=== PATIENT | female | born 1940 | race Caucasian/White ===

== ENCOUNTER → 2016-07-12 19:16 | Outpatient (CLI) | payer MEDICARE ==
[2016-04-03 13:24] VITALS: BMI 44.1
[~2016-07-12 19:16] MED LIST: AMBIEN10 MG PO; BACTROBAN NASAL1 GM NASAL; BAYER CHEWABLE81 MG PO; COLACE100 MG PO; COREG6.25 MG PO; CYMBALTA60 MG PO; DILAUDID4 MG PO; DITROPAN X10 MG/BOTT PO; ELIQUIS2.5 MG PO; FERROUS GLUCON324 MG PO; FUROSEMIDE20 MG PO; K-TAB10 MEQ PO; METFORMIN HCL500 M1 PO; MOBIC7.5 MG PO; PERCOCET 10/3251 TA1 PO; PROTONIX40 MG PO; ROBAXIN-750750 MG PO; ULTRAM50 MG PO; VITAMIN D31000 UNI2 PO; XANAX0.25 MG PO; ZYLOPRIM100 MG PO
== END | disposition home or self-care (01) ==
LOC: D.LABREF 19:16
DX: M17.11 Unilateral primary osteoarthritis, right knee (principal)

== ENCOUNTER 2016-08-07 05:11 | Inpatient (IN) | payer MEDICARE ==
[2016-08-03 12:19] LABS: APPEARANCE CLEAR (CLEAR); BILIRUBIN NEGATIVE (NEGATIVE); COLOR STRAW (YELLOW); GLUCOSE NEGATIVE (NEGATIVE); KETONE NEGATIVE (NEGATIVE); LEUKOCYTE ESTERASE NEGATIVE (NEGATIVE); NITRITE NEGATIVE (NEGATIVE); PROTEIN NEGATIVE (NEGATIVE); UROBILINOGEN NORMAL (NORMAL)
[2016-08-03 12:24] LABS: BASOPHILS 0.8 % (0.0-2.0); EOSINOPHILS 1.7 % (0-7); HEMATOCRIT 41.5 % (36.0-48.0); HEMOGLOBIN 12.7 g/dL (12-16); IMMATURE GRANULOCYTES 0.2 % (0-5); LYMPHOCYTES 34.5 % (15-50); MCH 25.1 pg (26.0-34.0); MCHC 30.6 g/dL (31.0-37.0); MCV 82.2 fL (80.0-100.0); MEAN PLATELET VOLUME 12.3 fL (7.4-10.4); MONOCYTES 6.3 % (2-11); NEUTROPHILS 56.5 % (40-80); PLATELET COUNT 248 10x3/uL (130-400); RBC 5.05 10x6/uL (4.00-5.40); RDW 17.6 % (11.5-14.5); WBC 6.3 10x3/uL (4.8-10.8)
[2016-08-03 12:28] LABS: ANION GAP 12.9 mmol/L (8-16); CALCIUM 8.7 mg/dL (8.5-10.1); CARBON DIOXIDE 27.4 mmol/L (21.0-32.0); CREATININE - SERUM 0.8 mg/dL (0.6-1.3); POTASSIUM - SERUM 4.3 mmol/L (3.5-5.1)
[2016-08-03 13:51] LABS: APTT 31.2 SECONDS (22.8-39.4); INR 1.02 (0.85-1.17); PROTIME 13.2 SECONDS (11.6-15.0)
[2016-08-07] VITALS (13 sets, daily range): BP systolic 99–129; BP diastolic 49–89; Ht 154.9 cm; Wt 108.6 kg
[~2016-08-07] VITALS: Ht 154.9 cm; Wt 108.6 kg
[~2016-08-07 05:11] MED LIST changes: -DILAUDID4 MG PO
--- NOTE | 2016-08-07 06:56 | NUR ---
0630 PT STATES NO CHANGES IN HEALTH HISTORY ASSESSMENT SINCE INTERVIEWED ON 08/03/16. LAST BM 08/06/16. Malika REYES R.N.
--- NOTE | 2016-08-07 10:05 | NUR ---
PATIENT RECEIVED TO FLOOR FROM PACU VIA BED. PATIENT RESTING QUIETLY WITH EYES CLOSED. WAKES EASY. VITAL SIGNS STABLE. ORIENTED TO ROOM. DRESSING TO RIGHT KNEE CLEAN, DRY AND INTACT. ICE PACK IN PLACE. SIDE RAILS UP X3. BED IN LOW POSITION. CALL LIGHT IN REACH. BED ALARM ON.
--- NOTE | 2016-08-07 11:25 | NUR ---
PATIENT IN BED RESTING QUIETLY. RATES PAIN 9/10. PERCOCET PER PRN ORDER. VITAL SIGN STABLE. FAMILY AT BEDSIDE. SIDE RAILS UP X3. BED IN LOW POSITION. CALL LIGHT IN REACH. BED ALARM ON.
--- NOTE | 2016-08-07 12:30 | NUR ---
ALERT IN BED. NO SIGNS OF DISTRESS NOTED. RATES PAIN 5/10. DENIES NEEDS. SIDE RAILS UP X2. BED IN LOW POSITION. CALL LIGHT IN REACH.
--- NOTE | 2016-08-07 13:07 | NUR ---
* Is the patient Alert and Oriented? Yes 0 * How many steps to enter\exit or inside your home? 5 0 * PCP Dr. Mccollum 0 * Pharmacy [facility] on [address] * Preadmission Environment Home with Family 0 * ADLs Independent 0 * Equipment Bedside Commode Rolling Walker 0 * List name and contact numbers for known caregivers / representatives who currently or will assist patient after discharge: Spouse - Lonny [phone] Daughter - Keisha [phone] 0 * Additional services required to return to the preadmission environment? Yes 0 * Can the patient safely return to the preadmission environment? Yes 0 * Has this patient been hospitalized within the prior 30 days at any hospital? No 08/07/2016 13:17 DCP: Discharge Planning 08/07/2016 13:08 DCP: Discharge Planning Patient Name: MONSE JAVIER Admission Status: Elective Accout number: [id number] Admission Date: 08-07-2016 : 1940 Admission Diagnosis: Attending: UTE Current LOS: 1 Anticipated DC Date: 08-09-2016 Planned Disposition: Outpatient PT\OT Primary Insurance: [employer] CHOICE PPO MCR ADVANT Discharge Planning Comments: CM met with patient to assess DC plans/needs. Patient state she lives at home with her , Lonny. She reports she is independent with all ADL's & IADL's. She has a walker & BSC from previous knee surgery. At dc, she will return home with her . She has chosen to come to [facility] for outpatient physical therapy. Appt. scheduled 08/11 @ 1100. Patient does not want CPM, states she had one after her last surgery but only used it once or twice. Anticipate dc 08/09. CM will follow. Vocational Education Professional: Patricia Preston
--- NOTE | 2016-08-07 14:34 | NUR ---
ALERT IN BED. NO SIGNS OF DISTRESS NOTED. PATIENT REFUSES TO REPOSITION AT THIS TIME. STATES SHE JUST TURNED BACK AND FORTH TO HAVE BED CHANGED. FAMILY AT BEDSIDE STATES THEY WILL MAKE SURE SHE TURNS. WILL CONTINUE TO MONITOR, ENCOURAGE AND ASSIST WITH RESPOSITIONING. C/O PAIN 02/06. 1 TAB NORCO PER PRN ORDER. NO FURTHER NEEDS VOICED. SIDE RAILS UP X3. BED IN LOW POSITION. CALL LIGHT IN REACH.
--- NOTE | 2016-08-07 17:43 | NUR ---
PERCOCET PER PRN ORDER. DENIES NEEDS. SIDE RAILS UP X2. BED IN LOW POSITION. CALL LIGHT IN REACH.
--- NOTE | 2016-08-07 18:20 | NUR ---
CPM PLACED ON RIGHT LEG. ICE PACK IN PLACE. WELL TOLERATED. SIDE RAILS UP X2. BED IN LOW POSITION. CALL LIGHT IN REACH. AT BEDSIDE.
--- NOTE | 2016-08-07 19:30 | NUR ---
RECIEVED SHIFT REPORT. PT IS LYING IN BED. ALERT AND ORIENTED AND ABLE TO VERBALIZE NEEDS. IV IS PATENT AND FLUIDS ARE RUNNING PER ORDER. CPM ON AT THIS TIME. SCD'S ON. DRESSING TO RIGHT KNEE C/D/I. PT STATES PAIN IS 3/10. NO NEEDS ARE VERBALIZED AT THIS TIME. WILL CONTINUE TO MONITOR. DAUGHTER IS AT THE BEDSIDE. NO NEEDS ARE VERBALIZED AT THIS TIME. WILL CONTINUE TO MONITOR. SIDE RAILS ARE UP X 2. BED IS IN LOWEST POSITION. BED ALARM IS ON FOR SAFETY. CALL LIGHT IS WITHIN REACH.
--- NOTE | 2016-08-07 21:49 | NUR ---
SHIFT ASSESSMENT COMPLETED. NIGHT MEDS GIVEN WITH NO PROBLEMS. PT C/O PAIN 09/06. ADMINISTERED PRESCRIBED PRN PERCOCET PER ORDER. DENIES FURTHER NEEDS. WILL MONITOR. DAUGHTER AT BEDSIDE. SIDE RAILS X 2. BED LOW. BED ALARM ON. CALL LIGHT IN REACH.
[2016-08-08] VITALS: BP 88/41
[2016-08-08 04:00] VITALS: BP 111/84
[2016-08-08 05:49] LABS: HEMATOCRIT 30.3 % (36.0-48.0); HEMOGLOBIN 9.3 g/dL (12-16); MCH 25.3 pg (26.0-34.0); MCHC 30.7 g/dL (31.0-37.0); MCV 82.3 fL (80.0-100.0); MEAN PLATELET VOLUME 12.1 fL (7.4-10.4); RBC 3.68 10x6/uL (4.00-5.40); WBC 8.3 10x3/uL (4.8-10.8)
--- NOTE | 2016-08-08 07:10 | NUR ---
PATIENT RECEIVED ALERT IN HIGH GOMES POSITION. RESPIRATIONS EVEN AND UNLABORED. RIGHT LEG IN CPM. DENIES NEEDS. DAUGHTER AT BEDSIDE. SIDE RAILS UP X2. BED IN LOW POSITION. CALL LIGHT IN REACH.
[2016-08-08 07:38] VITALS: BP 107/47
--- NOTE | 2016-08-08 08:07 | NUR ---
PATIENT ALERT IN BED WITH FAMILY AT BEDSIDE. NO SIGNS OF DISTRESS NOTED. SCHEDULED MEDICATION ADMINISTERED. DENIES NEEDS. SIDE RAILS UP X2. BED IN LOW POSITION. CALL LIGHT IN REACH. BED ALARM ON.
--- NOTE | 2016-08-08 10:35 | NUR ---
SITTING UP IN CHAIR AT BEDSIDE ALERT. NO SIGNS OF DISTRESS NOTED. RATES PAIN 05/09. ASSISTED TO BSC. VOIDED 700CC WITHOUT DIFFICULTY. ASSISTED BACK TO CHAIR. POSITIONED SELF FOR COMFORT. WELL TOLERATED. DENIES NEEDS. CALL LIGHT IN REACH. DAUGHTER AT BEDSIDE
[2016-08-08 11:54] VITALS: BP 103/55
--- NOTE | 2016-08-08 13:50 | NUR ---
PERCOCET ADMINISTERED PER PRN ORDER. DENIES FURTHER NEEDS. POSITIONED SELF IN BED FOR COMFORT. SIDE RAILS UP X2. BED IN LOW POSITION. CALL LIGHT IN REACH. BED ALARM ON.
--- NOTE | 2016-08-08 15:30 | NUR ---
ICE PACK TO RIGHT KNEE. NO NEEDS VOICED. SIDE RAILS UP X2. BED IN LOW POSITION. CALL LIGHT IN REACH. BED ALARM ON.
[2016-08-08 15:49] VITALS: BP 130/55
--- NOTE | 2016-08-08 17:19 | NUR ---
ALERT IN BED EATING DINNER. TOLERATING WELL. RATES PAIN 2/10. TORADOL ADMINISTERD PER PRN ORDER. NO FURTHER NEEDS. SIDE RAILS UP X2. BED IN LOW POSITION. CALL LIGHT IN REACH.
--- NOTE | 2016-08-08 18:15 | NUR ---
RIGHT LEG PLACED IN CPM. ICE PACK IN PLACE. DENIES NEEDS. SIDE RAILS UP X2. BED IN LOW POSITION. CALL LIGHT IN REACH. BED ALARM ON.
[2016-08-08 20:00] VITALS: BP 118/50
[2016-08-09 04:00] VITALS: BP 128/62
--- NOTE | 2016-08-09 07:10 | NUR ---
PATIENT RECEIVED IN LOW GOMES POSITION RESTING WITH EYES CLOSED. RESPIRATIONS EVEN AND UNLABORED. RIGHT LEG IN CPM. SIDE RAILS UP X2. BED IN LOW POSITION. CALL LIGHT IN REACH.
[2016-08-09 09:00] VITALS: BP 117/60
[2016-08-09 09:00] LABS: HEMOGLOBIN 9.2 g/dL (12-16); MCH 25.6 pg (26.0-34.0); MCHC 31.7 g/dL (31.0-37.0); MCV 80.8 fL (80.0-100.0); MEAN PLATELET VOLUME 11.7 fL (7.4-10.4); RBC 3.59 10x6/uL (4.00-5.40); RDW 16.9 % (11.5-14.5); WBC 9.9 10x3/uL (4.8-10.8)
--- NOTE | 2016-08-09 09:00 | NUR ---
SITTING UP IN CHAIR ALERT. NO SIGNS OF DISTRESS NOTED. CALL LIGHT IN REACH.
--- NOTE | 2016-08-09 11:30 | NUR ---
PATIENT ASSISTED UP TO BSC THEN BACK TO CHAIR ASSIST X1. VOIDED 300CC WITHOUT DIFFICULTY. DENIES NEEDS. CALL LIGHT IN REACH.
--- NOTE | 2016-08-09 13:27 | NUR ---
ALERT IN BED. NO SIGNS OF DISTRESS NOTED. PERCOCET PER PRN ORDER. DENIES FURTHER NEEDS. SIDE RAILS UP X2. BED IN LOW POSITION. CALL LIGHT IN REACH. BED ALARM ON.
[2016-08-09 13:34] VITALS: BP 112/49
--- NOTE | 2016-08-09 15:00 | NUR ---
ALERT IN BED. NO SIGNS OF DISTRESS NOTED. DENIES NEEDS. RADIOLOGY STAFF AT BEDSIDE TO DO ULTRASOUND. SIDE RAILS UP X2. BED IN LOW POSITION. CALL LIGHT IN REACH .
--- NOTE | 2016-08-09 16:30 | NUR ---
PATIENT ASSISTED UP TO BSC ASSIST X1 AND THEN TO CHAIR AT BEDSIDE. WELL TOLERATED. DENIES NEEDS. CALL LIGHT IN REACH.
[2016-08-09 17:16] VITALS: BP 111/64
--- NOTE | 2016-08-09 18:00 | NUR ---
PATIENT SITTNG UP IN CHAIR AT BEDSIDE. NO SIGNS OF DISTRESS NOTED. TOELRATED DINNER WITHOUT DIFFICULTY. AT BEDSIDE. DENIES NEEDS. CALL LIGHT IN REACH.
[2016-08-09 20:00] VITALS: BP 116/75
[2016-08-10] VITALS: BP 135/66
--- NOTE | 2016-08-10 01:25 | NUR ---
ASSESSED AT THE BEGINNING OF THE SHIFT. PT IS ALERT AND ORIENTED, ABLE TO VERBALZIE NEEDS. HER WAS IN THE BED AT FIRST AND SHE WAS UP IN THE BEDSIDE CHAIR. LATER SHE GOT IN THE BED AND WE PLACED ON THE CPM WHICH RAN FOR ABOUT 2 HRS BEFORE WE TOOK IT OFF. THERE IS AN INCISION TO HER RIGHT KNEE AND SHE HAS A SCARE TO THE LEFT WHERE SHE HAD IT DONE BACK IN THE FALL. SHE HAS BEEN UP TO THE BEDSIDE COMMODE TO VOID AND WITH ASSIST CAN GET BACK UP IN THE BED USING STAFF AND HER TRAPEZE BAR. HER LEFT AT ABOUT 2200. SHE TOOK ALL HER MEDS WITOUT PROBLEMS AND ALSO TOOK PAIN MEDS ORDERED. THE BED IS LOW, RAILS UP X'S 2 WITH THE CALL LIGHT AT HAND.
[2016-08-10 04:00] VITALS: BP 121/61
[2016-08-10] MEDS ORDERED: ELIQUIS2.5 MG PO (07:41)
[2016-08-10] MEDS ORDERED: DILAUDID4 MG PO (07:43)
[2016-08-10 07:50] VITALS: BP 121/49
--- NOTE | 2016-08-10 08:39 | NUR ---
08/10/2016 8:36 DCP: Discharge Planning Patient Name: MONSE JAVIER Encounter No: [id number] : 1940 Primary Insurance: [employer] CHOICE PPO MCR ADVANT Anticipated DC Date: 08-09-2016 Planned Disposition: Outpatient PT\OT External Planned Provider: [facility] Out Patient Physical Therapy DCP follow-up note: DC order rec'd. Discussed home CPM again with patient - continues to refuse. Patient and family in agreement with discharge plan. No changes to plan. DC later this morning. Patricia Preston
--- NOTE | 2016-08-10 10:41 | NUR ---
PATIENT RECIEVED DC INSTRUCTIONS AND PRESCRIPTIONS. VERBALIZED UNDERSTANDING. NO QUESTIONS AT THIS TIME. DRESSING TO RIGHT KNEE CHANGED WITH AQUACEL AG AT THIS TIME. INCISION CLEAN AND DRY. IV REMOVED BY SN WITH CATH TIP INTACT. AWAITING TRANSPORTATION FOR DC. CALL LIGHT WITHIN REACH.
--- NOTE | 2016-08-10 17:40 | OP ---
PATIENT NAME: MONSE JAVIER MEDICAL RECORD: [id number] :[birth year] LOCATION:D.[id number] ADMISSION DATE:08/07/16 SURGEON: CANDIDO WINCHESTER MD DATE OF OPERATION: 08/07/2016 PREOPERATIVE DIAGNOSIS: Degenerative arthritis, right knee. POSTOPERATIVE DIAGNOSIS: Degenerative arthritis, right knee. PROCEDURE: Right total knee arthroplasty. SURGEON: Candido Winchester M.D. ANESTHESIA: General. INTRAOPERATIVE COMPLICATIONS: None. SUMMARY OF PATHOLOGIC FINDINGS: The patient had severe tricompartmental osteoarthritis. IMPLANTS USED: Laclede triathlon total knee arthroplasty size 4 distal femur, 11 polyethylene insert, 4 tibial baseplate, and 33 patellar resurfacing component. OPERATIVE SUMMARY IN DETAIL: After obtaining the appropriate preoperative orthopedic surgery consent as well as anesthetic consultation, evaluation and clearance, the patient was brought to the operating room and placed on the operating table in supine position. After general laryngeal mask was administered, tourniquet was placed about the proximal aspect of the right lower extremity, which was prepped and draped in a routine sterile fashion. The leg was elevated and exsanguinated, tourniquet inflated to 350 mmHg. Routine midline incision was taken down for paramedian arthrotomy. Patella was everted and distal femur was exposed in the usual fashion. Soft tissue excision was done in the usual fashion. Intramedullary guide hole was created for distal intramedullary guided cuts of the femur. The proximal tibia likewise was completely exposed in its entirety and once again, an intramedullary guide hole was created for intramedullary guide of the tibia. The tibia was cut. Measurements were taken. Chamfer cuts were made on the distal femur. Trials were put into place corresponding to the above-mentioned sizes. Taken through range of motion and found to be stable in all planes. Distal femoral and proximal tibial final preparations were followed by excision of the severely arthritic patellar component. After final patellar component preparations were made, the knee was irrigated in pulsatile lavage fashion to remove all bone fragmentation. Bone ends were dried. Final components were cemented into place. All excess cement was removed. After the cement was allowed to harden, the knee was taken through a range of motion, slight lateral subluxation was noted and lateral release was performed. Median arthrotomy was then closed with #2 Ethibond followed by #1 Vicryl, 2-0 Vicryl, and skin jenny. Sterile dressings were applied. The tourniquet was deflated. The patient was awakened and taken to the recovery room in stable condition. All final needle and sponge counts were correct. TRANSINT:[id number] Voice Confirmation ID: [id number] DOCUMENT ID: [id number] OPERATIVE REPORT [id number] MONSE JAVIER MD, CANDIDO JUDGE at 1740 CC: [id number] DICTATION DATE: 08/07/16931 AUTOMOTIVE PARTS INTERPRETER: 08/07/16 1313 DIS IN 08/10/16 [facility] [address] [place] [address]
== END 2016-08-10 10:55 | disposition home or self-care (01) | DRG 554 ==
LOC: D.MS 05:11 → D.SDCHOLD 05:11 → D.MS 09:54 → D.SDCHOLD 10:30 → D.MS 08-10 10:55
PROVIDERS: ADMIT Orthopaedic Surgery
DX: M17.11 Unilateral primary osteoarthritis, right knee (principal); D62 Acute posthemorrhagic anemia; E11.9 Type 2 diabetes mellitus without complications; Z79.84 Long term (current) use of oral hypoglycemic drugs; G47.00 Insomnia, unspecified; I25.10 Atherosclerotic heart disease of native coronary artery without angina pectoris

== ENCOUNTER 2016-09-04 07:50 | Inpatient (IN) | payer MEDICARE ==
[2016-08-31 14:32] LABS: BASOPHILS 0.6 % (0-2); EOSINOPHILS 0.7 % (0-7); HEMATOCRIT 34.1 % (36.0-48.0); HEMOGLOBIN 10.6 g/dL (12-16); IMMATURE GRANULOCYTES 0.2 % (0-5); LYMPHOCYTES 24.2 % (15-50); MCH 25.3 pg (26.0-34.0); MCHC 31.1 g/dL (31.0-37.0); MCV 81.4 fL (80.0-100.0); MEAN PLATELET VOLUME 10.8 fL (7.4-10.4); MONOCYTES 8.8 % (2-11); NEUTROPHILS 65.5 % (40-80); RBC 4.19 10x6/uL (4.00-5.40); RDW 16.5 % (11.5-14.5); WBC 8.9 10x3/uL (4.8-10.8)
[2016-08-31 14:34] LABS: PLATELET COUNT 391 10x3/uL (130-400)
[2016-08-31 14:40] LABS: ANION GAP 10.6 mmol/L (8-16); CALCIUM 8.7 mg/dL (8.5-10.1); CARBON DIOXIDE 30.9 mmol/L (21.0-32.0); CREATININE - SERUM 0.8 mg/dL (0.6-1.3); POTASSIUM - SERUM 3.5 mmol/L (3.5-5.1)
[2016-08-31 14:47] LABS: APPEARANCE CLOUDY (CLEAR); BILIRUBIN NEGATIVE (NEGATIVE); COLOR YELLOW (YELLOW); GLUCOSE NEGATIVE (NEGATIVE); KETONE NEGATIVE (NEGATIVE); LEUKOCYTE ESTERASE 1+ (NEGATIVE); NITRITE POSITIVE (NEGATIVE); PROTEIN 1+ mg/dL (NEGATIVE); SPECIFIC GRAVITY 1.015 (1.005-1.020); UROBILINOGEN NORMAL (NORMAL)
[2016-08-31 14:48] LABS: BACTERIA MANY /hpf (NONE SEEN); EPITHELIAL CELLS 0-5 /hpf (0-5); RED CELLS - URINE 0-5 /hpf (0-5)
[2016-08-31 15:24] LABS: APTT 30.7 SECONDS (22.8-39.4); INR 1.13 (0.85-1.17); PROTIME 14.4 SECONDS (11.6-15.0)
[~2016-09-04] VITALS: Ht 154.9 cm; Wt 106.4 kg
[~2016-09-04 07:50] MED LIST changes: +DILAUDID4 MG PO; -FUROSEMIDE20 MG PO; +HYDROCODONE-APA1 TAB PO; +LASIX20 MG PO
[2016-09-04 08:55] LABS: APPEARANCE SLT CLOUDY (CLEAR); COLOR YELLOW (YELLOW); SPECIFIC GRAVITY 1.015 (1.005-1.020)
[2016-09-04 08:56] LABS: BACTERIA MANY /hpf (NONE SEEN); BILIRUBIN NEGATIVE (NEGATIVE); GLUCOSE NEGATIVE (NEGATIVE); KETONE NEGATIVE (NEGATIVE); LEUKOCYTE ESTERASE 2+ (NEGATIVE); MUCUS >1+ /lpf (NONE SEEN); NITRITE NEGATIVE (NEGATIVE); PROTEIN NEGATIVE (NEGATIVE); RED CELLS - URINE 0-5 /hpf (0-5)
[2016-09-04 09:01] VITALS: BP 115/57; BMI 44.5
[2016-09-04 14:20] VITALS: BP 91/59
--- NOTE | 2016-09-04 14:20 | NUR ---
RECEIVED PT TO ROOM 2209, VIA BED, PT DROWSY FROM PAIN MEDS GIVEN IN RECOVERY. PT ORIENTED TO ROOM AND CALL LIGHT. SCD PUT ON LEFT LEG. WILL DO ASSESSMENT AND START PLAN OF CARE. DAUGTHER AT BEDSIDE
--- NOTE | 2016-09-04 14:56 | NUR ---
DEMEROL PIPED BUTTONHOLE MACHINE OPERATOR STARTED AT THIS TIME. PT IN BED, DENIES ANY NEEDS AT THIS TIME. DAUGTHER AT BEDSIDE, NAD NOTED, WILL CONTINUE TO MONITOR.
[2016-09-04 16:17] VITALS: Ht 154.9 cm; Wt 106.4 kg
--- NOTE | 2016-09-04 19:00 | NUR ---
PATIENT SUPINE IN BED WATCHING TV. HOB 30 DEGREES. AAOX4. RR EVEN AND UNLABORED. O2 @ 2L VIA NC. 0 S/S OF DISTRESS. DENIES PAIN AT THIS TIME. IV TO RIGHT WRIST PATENT WITH NO REDNESS OR SWELLING. DRESSING TO RIGHT KNEE CDI WITH IMMOBILIZER ON. WOUNDVAC TO RIGHT KNEE. MEPILEX TO BILATERAL HEELS. SCD TO LLE. B/A ON. AT BEDSIDE. SRX2. BED LOW. CALL LIGHT WITHIN REACH.
[2016-09-04 20:00] VITALS: BP 97/71
--- NOTE | 2016-09-04 22:15 | NUR ---
ASSESSMENT COMPLETE. NIGHTTIME MEDS GIVEN. NO OTHER NEEDS AT THIS TIME.
[2016-09-05] VITALS: BP 109/52
--- NOTE | 2016-09-05 02:00 | NUR ---
PATIENT HAD INCONTINENT EPISODE OF BLADDER. BATH GIVEN. LINENS AND GOWN CHANGED.
[2016-09-05 04:00] VITALS: BP 107/44
--- NOTE | 2016-09-05 06:00 | NUR ---
PATIENT AWAKE AND ALERT. MORNING MEDS GIVEN. DENIES NEEDS OR PAIN.
[2016-09-05 06:40] LABS: HEMATOCRIT 29.2 % (36.0-48.0); MCH 24.7 pg (26.0-34.0); MCHC 30.8 g/dL (31.0-37.0); MCV 80.2 fL (80.0-100.0); MEAN PLATELET VOLUME 11.1 fL (7.4-10.4); RBC 3.64 10x6/uL (4.00-5.40); RDW 16.3 % (11.5-14.5); WBC 8.1 10x3/uL (4.8-10.8)
[2016-09-05 08:04] VITALS: BP 110/34
--- NOTE | 2016-09-05 08:36 | NUR ---
RESTING, SISTER AT BEDSIDE, DENIES NEEDS, BED LOWEST POSITION, CALL LIGHT IN REACH, WILL CONTINUE TO MONITOR
--- NOTE | 2016-09-05 09:05 | NUR ---
PATIENT SITTING UP ON SIDE OF BED ALERT. NO SIGNS OF DISTRESS NOTED. PT AT BEDSIDE. BED IN LOW POSITION. CALL LIGHT IN REACH.
[2016-09-05 11:33] VITALS: BP 138/57
--- NOTE | 2016-09-05 14:32 | NUR ---
* Is the patient Alert and Oriented? Yes 0 * How many steps to enter\exit or inside your home? 5 0 * PCP Dr. Mccollum 0 * Pharmacy [facility] [address] * Preadmission Environment Home with Family 0 * ADLs Partial Dependent 0 * Partial ADLs (Assistance needed) Ambulation Bathing Dressing Toileting 0 * Equipment Bedside Commode Rolling Walker 0 * List name and contact numbers for known caregivers / representatives who currently or will assist patient after discharge: Spouse - Bill [phone] Daughter - Keisha [phone] 0 * Additional services required to return to the preadmission environment? Yes 0 * Can the patient safely return to the preadmission environment? Yes 0 * Has this patient been hospitalized within the prior 30 days at any hospital? Yes 09/05/2016 14:26 DCP: Discharge Planning Patient Name: MONSE JAVIER Admission Status: Elective Accout number: [id number] Admission Date: 09-04-2016 : 1940 Admission Diagnosis: Attending: UTE Current LOS: 1 Anticipated DC Date: 09-07-2016 Planned Disposition: Home with Home Health Primary Insurance: [employer] CHOICE PPO [facility] Discharge Planning Comments: CM met with patient to assess dc plans/needs. Patient states she was going to outpatient physical therapy here at [facility] following her initial knee surgery last month. She states she quit going after she went to see her surgeon & revision was scheduled. Spoke with Umu @ [facility] OP PT - she states patient wasn't consistent with keep her appointments, had issues with family bringing her. She has a walker & BSC at home. Discussed home health services with patient - she is agreeable. She reports she has had home health services in the past with [facility] & wants to use them again. JOSEPH signed. Anticipate DC 09/07. CM will follow.
[2016-09-05 16:20] VITALS: BP 113/42
--- NOTE | 2016-09-05 19:36 | NUR ---
ASSESSMENT COMPLETED, NO ACUTE DISTRESS NOTED, IMMOBILIZER AND WOUND VAC IN PLACE TO RLE, VAC RUNNING AT 125/MMHG, IV TO R WRIST PATENT, FLUIDS AND CFO CONTROLLER INFUSING WITH EASE,SCD IN PLACE TO LLE, FAMILY IN ROOM, SR'S UP, CL IN REACH, WILL MONITOR
[2016-09-05 20:00] VITALS: BP 110/46
--- NOTE | 2016-09-05 20:45 | NUR ---
SCHEDULED MEDS GIVEN PER MAR ALONG WITH PRN TORODAL, LOGISTICS PROJECT MANAGER PUMP FILLED PER ORDERS, PT FRANCO WELL, FAMILY IN ROOM, SR'S UP, CL IN REACH
--- NOTE | 2016-09-05 22:16 | NUR ---
RESTING WITH EYES CLOSED, RESP WITH EASE, NO DISTRESS NOTED, VISITOR AT BEDSIDE, SR'S UP, CL IN REACH
--- NOTE | 2016-09-06 00:31 | NUR ---
CONTINUES TO REST WITH EYES CLOSED, NO DISTRESS NOTED, FALL PRECAUTIONS IN PLACE, CL IN REACH
[2016-09-06 05:35] LABS: HEMATOCRIT 28.2 % (36.0-48.0); HEMOGLOBIN 8.8 g/dL (12-16); MCH 24.8 pg (26.0-34.0); MCHC 31.2 g/dL (31.0-37.0); MCV 79.4 fL (80.0-100.0); MEAN PLATELET VOLUME 10.9 fL (7.4-10.4); RBC 3.55 10x6/uL (4.00-5.40); RDW 16.3 % (11.5-14.5); WBC 7.6 10x3/uL (4.8-10.8)
--- NOTE | 2016-09-06 07:30 | NUR ---
RECIEVED PT DURING WALKING ROUNDS. PT RESTING IN BED WITH COMPLAINTS OF PAIN OF A 5 ON A SCALE OF 1-10. SOLAR PHOTOVOLTAIC DESIGNER IN USE. ASSESSMENT DONE PER FLOWSHEET. BED IN LOW POSITION AND CALL LIGHT WITHIN REACH. WILL CONTINUE TO MONITOR.
[2016-09-06 08:16] VITALS: BP 125/58
--- NOTE | 2016-09-06 10:36 | NUR ---
09/06/2016 10:27 DCP: Discharge Planning Patient Name: MONSE JAVIER Encounter No: [id number] : 1940 Primary Insurance: [employer] CHOICE PPO MCR ADVANT Anticipated DC Date: 09-07-2016 Planned Disposition: SNF DCP follow-up note: Order rec'd for rehab placement. Daughter states she is not able to care for patient at home until she is stronger. Discussed SNF options - first choice is [facility], second [facility], 3rd [facility] & 4th [facility]. Referral faxed and called to Gina @ [facility]. Waiting determination & insurance authorization. Case management will follow and assist as needed. Patricia Preston
[2016-09-06 12:22] VITALS: BP 109/60
--- NOTE | 2016-09-06 13:29 | OP ---
PATIENT NAME: MONSE JAVIER MEDICAL RECORD: [id number] :[birth year] LOCATION:D.[facility] ADMISSION DATE:09/04/16 SURGEON: CANDIDO WINCHESTER MD DATE OF OPERATION: 09/04/2016 Orthopedic Surgery Operative Note PREOPERATIVE DIAGNOSIS: Tear of the paramedian arthrotomy with lateral patellar subluxation. POSTOPERATIVE DIAGNOSIS: Tear of the paramedian arthrotomy with lateral patellar subluxation, plus loosening of the tibia. PROCEDURES: Right total knee revision tibial component with a quadriceps repair and realignment that is imbrication and quadriceps advancement. OPERATIVE SUMMARY IN DETAIL: After obtaining the appropriate preoperative orthopedic surgery consent as well as anesthetic consultation, evaluation and clearance, the patient was brought to the operating room and placed on table in supine position. After general laryngeal mask was administered, tourniquet was placed about the proximal aspect of the right lower extremity. The right lower extremity was then prepped and draped in routine sterile fashion. Leg was elevated, exsanguinated and tourniquet 350 mmHg. The previously utilized incision was taken down, the paramedian arthrotomy was grossly split. The patella and component itself was in place and the tibial component was loose. Attention was first turned to removal of the tibial component. Polyethylene was taken out. The tibial component was removed. It did appear that there was a fracture underneath the base of it with a substantial amount of bone loss. At this point, the knee was copiously irrigated. Serial and sequential reaming was done for a totally cemented universal baseplate using cone stabilization and tibial baseplate augmentation. After the appropriate cleanup cut was made, the trial that is a #3 baseplate with a 100-mm stem with two 10-mm wedges medially and lateral was put into place along with a size 11 patellar component. This was stable in all planes. This was all removed. The reaming was done for the bone loss for the cone system of the [place] difficult knee. Having completed this, a trial was replaced and again punched in the appropriate position. Lastly, the cavity was copiously irrigated. The femoral component was checked and found to be without deficit as was the patella. The tibial component was assembled on the back table and a cement restrictor was placed down the tibia. The tibia was then cemented into place and held in the appropriate rotation until the cement was allowed to harden. All excess cement was removed. At this point, the paramedian arthrotomy was closed; however, the vastus medialis obliquus was advanced and a long lateral release was done to help more centralized the patella. The VM0 advancement was done with FiberWire. Lastly, the skin was closed with #1 Vicryl followed by skin jenny. Sterile dressings were applied. Tourniquet was deflated. The patient was awakened and taken to recovery room in stable condition. All final needle and sponge counts were correct. TRANSINT:[id number] Voice Confirmation ID: [id number] DOCUMENT ID: [id number] OPERATIVE REPORT [id number] MONSE JAVIER MD, CANDIDO JUDGE at 1329 CC: [id number] DICTATION DATE: 09/04/16 1950 HOUSING AND RESIDENCE LIFE DIRECTOR: 09/05/16 0542 [facility] [address] [place] [address]
--- NOTE | 2016-09-06 14:57 | NUR ---
Rehab Note- Acute Rehab Prescreen order received. The patient has [employer] And will require a PreAuth for IRF stay. Clinicals have been faxed to Mendy Hodges CM for [employer] and awaiting possible approval for PreAuth. Thank you for this referral! Ailin Lopez RN Clinical Liaison, [facility] Rehab/[place]
[2016-09-06 16:31] VITALS: BP 132/64
--- NOTE | 2016-09-06 16:36 | NUR ---
Rehab Note- Received notification from BURAK Brooke for [facility]. Acute IRF stay was denied by [facility] medical van driver. Peer to Peer review appeal can occur within 5 calendar days of denial and Mendy can be reached at [phone] [phone] to set up peer to peer. Spoke with BURAK Best and informed her that the patient had been denied an IRf stay but would approve a SNF stay if that is what the patient and family desire upon discharge from the acute hospital. Thank you for this referral! Ailin Lopez RN Clinical Liaison, [facility] Rehab/[place]
--- NOTE | 2016-09-06 18:03 | NUR ---
OT NOTE: PT COMPLETED SELF FEEDING WITH SET UP. PT COMPLETED POSITIONING WITH MOD/MAX A. PT COMPLETED BUE GROSS/FM SKILLS FOR INCREASED I WITH ADLS. THANK YOU, ASHLEY ASHFORD/Jerald
--- NOTE | 2016-09-06 19:00 | NUR ---
PATIENT IN BED WATCHING TV. HOB 45 DEGREES. AAOX4. RR EVEN AND UNLABORD. 0 S/S OF DISTRESS. STATES PAIN IS A 5/10. IV TO RIGHT WRIST PATENT WITH NO REDNESS OR SWELLING. DRESSING TO RIGHT KNEE CDI WITH HINGED BRACE ON. SCD TO LLE. DAUGHTER AT BEDSIDE. B/A ON. SRX2. BED LOW. CALL LIGHT WITHIN REACH.
[2016-09-06 20:00] VITALS: BP 123/58
--- NOTE | 2016-09-06 22:00 | NUR ---
NIGHTTIME MEDS GIVEN. TORADOL GIVEN FOR PAIN PER REQUEST.
[2016-09-07] VITALS: BP 111/46
[2016-09-07 04:00] VITALS: BP 124/52
--- NOTE | 2016-09-07 07:14 | NUR ---
PATIENT IS AWAKE, ALERT AND ORIENTED X'S 4. RESPIRATIONS ARE EVEN AND UNLABORED ON ROOM AIR. BED ALARM OFF, TURNED IT ON. BED IN LOWEST POSITION, CALL LIGHT IN REACH. FAMILY MEMBER IN CHAIR BESIDE BED.
--- NOTE | 2016-09-07 07:16 | NUR ---
BED ALARM GOING OFF, WENT IN ROOM. FAMILY MEMBER TURNED OFF THE BED ALARM. SHE STATED "I WAS TRYING TO GET HER PULLED UP IN THE BED AND THE BED ALARM WENT OFF. THAT THING IS ALWAYS GOING OFF, EVEN WHEN I AM JUST TRYING TO PUT HER ON THE BEDPAN. AND WHEN IT STARTS GOING OFF IT WILL NOT STOP. THAT'S WHY I JUST KEEP IT TURNED OFF." I STATED "WE HAVE TO KEEP THE BED ALARM ON." ASSISTED PATIENT GETTING PULLED UP IN THE BED. TURNED THE BED ALARM BACK ON.
--- NOTE | 2016-09-07 07:30 | NUR ---
PT ASSESSMENT COMPLETE AWAKE AND ALERT ORINETED X 3 LUNGS WITH NO AEDBAYO EXOPIRATORY WHEEZE TO RIGHT UPPER LOBE CALL LIGHT IN REACH SIDE RAILS UP X 2
[2016-09-07] MEDS ORDERED: HYDROCODONE-APA1 TAB PO (08:35)
[2016-09-07 08:44] VITALS: BP 120/48
--- NOTE | 2016-09-07 10:58 | NUR ---
09/07/2016 10:50 DCP: Discharge Planning Rec'd call from Pricila with [facility] - patient has been accepted to a fdc bed and they have rec'd insurance authorization. Family has completed paperwork. Transport van will pick her up around 1430. Nursing to call report to [phone]. DC orders & Med Rec faxed.
[2016-09-07 12:24] VITALS: BP 104/72
--- NOTE | 2016-09-07 16:36 | NUR ---
PT DISCHARGED TO [facility] REPORT CALLED PIV D/C AND DRESSING CHANGED PRIOR TO DISCHARGE.
== END 2016-09-07 16:37 | DRG 467 ==
LOC: D.MS 07:50 → D.SDCHOLD 07:50 → D.MS 08:58 → D.SDCHOLD 10:00 → D.MS 09-07 16:37
PROVIDERS: ADMIT Orthopaedic Surgery
PROC: 0SRV0J9 Replacement of Right Knee Joint, Tibial Surface with Synthetic Substitute, Cemented, Open Approach (ICD-10-PCS; 2016-09-04)
PROC: 0SPV0JZ Removal of Synthetic Substitute from Right Knee Joint, Tibial Surface, Open Approach (ICD-10-PCS; principal; 2016-09-04 10:00)
DX: T84.032A Mechanical loosening of internal right knee prosthetic joint, initial encounter (principal); D62 Acute posthemorrhagic anemia; T84.022A Instability of internal right knee prosthesis, initial encounter; E11.9 Type 2 diabetes mellitus without complications; I10 Essential (primary) hypertension; Z79.84 Long term (current) use of oral hypoglycemic drugs; Z95.5 Presence of coronary angioplasty implant and graft; I25.10 Atherosclerotic heart disease of native coronary artery without angina pectoris

== ENCOUNTER 2016-09-12 15:42 | Inpatient (IN) | payer MEDICARE ==
[~2016-09-12] VITALS: Ht 154.9 cm; Wt 106.1 kg
--- NOTE | 2016-09-12 17:00 | NUR ---
RECIEVED TO ROOM FROM ER ADMISSIONS DIRECT ADMISSION FROM DR WINCHESTER PT NOTED TO HAVE BRACE TO RIGHT KNEE AND DRESSING IN PLACE WITH ADMITTING DX DEHIST WOUND TO RIGHT KNEE S/P TOTAL RIGHT KNEE LAST WEEK. AFEBRILE. AWAKE AND ALERT ORIENTED X 3
[2016-09-12 17:36] VITALS: BMI 44.3
[2016-09-12 18:27] LABS: BASOPHILS 0.3 % (0-2); HEMATOCRIT 30.5 % (36.0-48.0); HEMOGLOBIN 9.3 g/dL (12-16); IMMATURE GRANULOCYTES 0.4 % (0-5); LYMPHOCYTES 27.8 % (15-50); MCH 24.5 pg (26.0-34.0); MCHC 30.5 g/dL (31.0-37.0); MCV 80.5 fL (80.0-100.0); MEAN PLATELET VOLUME 10.4 fL (7.4-10.4); MONOCYTES 9.3 % (2-11); NEUTROPHILS 61.2 % (40-80); RBC 3.79 10x6/uL (4.00-5.40); RDW 16.9 % (11.5-14.5); WBC 9.2 10x3/uL (4.8-10.8)
[2016-09-12 18:28] LABS: PLATELET COUNT 383 10x3/uL (130-400)
--- NOTE | 2016-09-12 18:41 | NUR ---
PIV SITED TO RIGHT INNER FORARM 22 GA X 1 STICK. TOLERATED WELL.
[2016-09-12 18:59] LABS: ANION GAP 10.9 mmol/L (8-16); CALCIUM 8.1 mg/dL (8.5-10.1); CREATININE - SERUM 0.9 mg/dL (0.6-1.3); POTASSIUM - SERUM 3.9 mmol/L (3.5-5.1)
[2016-09-12 19:00] VITALS: BP 98/51
[2016-09-13 04:00] VITALS: BP 130/55
[2016-09-13 06:21] LABS: BASOPHILS 0.8 % (0-2); HEMATOCRIT 27.8 % (36.0-48.0); HEMOGLOBIN 8.5 g/dL (12-16); IMMATURE GRANULOCYTES 0.3 % (0-5); LYMPHOCYTES 39.3 % (15-50); MCH 24.3 pg (26.0-34.0); MCHC 30.6 g/dL (31.0-37.0); MCV 79.4 fL (80.0-100.0); MEAN PLATELET VOLUME 10.7 fL (7.4-10.4); MONOCYTES 9.9 % (2-11); NEUTROPHILS 47.7 % (40-80); PLATELET COUNT 414 10x3/uL (130-400); RDW 16.7 % (11.5-14.5)
[2016-09-13 06:23] LABS: WBC 6.1 10x3/uL (4.8-10.8)
[2016-09-13 06:54] LABS: CALC OSMOLALITY 281 mosm/kg (275-300); CHLORIDE - SERUM 104 mmol/L (98-107); CREATININE - SERUM 0.7 mg/dL (0.6-1.3); GLUCOSE 98 mg/dL (74-106); POTASSIUM - SERUM 3.6 mmol/L (3.5-5.1); SODIUM 142 mmol/L (136-145); eGFR NON AFRICAN AMERICAN 86 mL/min (90-120)
[2016-09-13 07:18] LABS: UREA NITROGEN 10 mg/dL (7-18)
[2016-09-13 08:14] VITALS: BP 138/48; BP 138/62
--- NOTE | 2016-09-13 08:45 | NUR ---
Lying in bed alert and oriented times 4, IV patent RAC, right knee brace in place with dressing clean, dry and intact. Reports pain at level 1. No distress noted. Side rails up times 3. Reinforced fall precautions, transfers with assist to BSC. Instructed on will have procedure on right knee today, reported to this nurse for around noon, consents on chart signed. Verbalized understanding of NPO. Call light within reach. Spouse at bedside.
--- NOTE | 2016-09-13 11:38 | NUR ---
09/13/2016 11:26 DCP: Discharge Planning Patient Name: MONSE JAVIER Admission Status: Urgent Accout number: [id number] Admission Date: 09-12-2016 : 1940 Admission Diagnosis:DISRUPTION OF EXTERNAL OPERATION (SURGICAL) WOUND, NEC, Attending: UTE Current LOS: 1 Anticipated DC Date: 09-15-2016 Planned Disposition: Home with Home Health Primary Insurance: [employer] CHOICE [facility] Discharge Planning Comments: CM MET WITH PT AND DAUGHTER (JORDANA ANDRADE) IN ROOM WITH HER. PT STATES THAT SHE THAT SHE CAME FROM [facility] AND DOES NOT WANT TO RETURN THERE. PT IS REQUESTING TO GO HOME WITH HOME HEALTH. SHE STATES SHE HAS AROUND THE CLOCK CARE WITH HER (IAN JAVIER) AND HER DAUGHTER (VARUN LAKE). PT HAS 3 STAIRS WITH GRAB RAILS. PT DOES HER OWN MEDICATIONS AND HAS A ELEVATED TOILET SEAT. BEDSIDE COMMODE, CANE, WALKER. SHE ALSO SATES THAT SHE HAS A WALK IN SHOWER WITH A SHOWER CHAIR. PCP [facility] CM WILL CONTINUE TO FOLLOW AND ASSIST NEEDED WITH DISCHARGE PLANNING/ NEEDS PCP: [facility]: [facility] [address] [address] [phone] DANY GUTIÉRREZ RN * Is the patient Alert and Oriented? Yes 0 * How many steps to enter\exit or inside your home? 3 0 * PCP [facility] 0 * Pharmacy [facility] 0 * Preadmission Environment [facility] Facility 0 * Facility Name [facility] 0 * ADLs Partial Dependent 0 * Partial ADLs (Assistance needed) Bathing Dressing Toileting Transfers 0 * Equipment Cane Elevated [place] Seat Shower Chair Walker 0 * Other Equipment WALK IN SHOWER 0 * List name and contact numbers for known caregivers / representatives who currently or will assist patient after discharge: IAN JAVIER () [phone] VARUN LAKE (DAUGHTER) [phone] JORDANA ANDRADE (DAUGHTER) [phone] 0 * Community resources currently utilized None 0 * Additional services required to return to the preadmission environment? Yes 0 * Can the patient safely return to the preadmission environment? Yes 0 * Has this patient been hospitalized within the prior 30 days at any hospital? Yes
[2016-09-13 11:50] VITALS: BP 149/68
--- NOTE | 2016-09-13 11:54 | NUR ---
Patient transported down for surgery. Relayed information regarding patient need for new order to infuse one unit of PRBC to [facility] in surgery.
--- NOTE | 2016-09-13 13:45 | NUR ---
Patient back from surgery right knee irrigation and wound closure. Alert and oriented times 4, verbalizes no pain. Justin wrap dressing and immobilizer in place. Room air pulse ox 94%, vital signs stable. Report from Shagufta Nova.
[2016-09-13 13:49] VITALS: BP 149/66
[2016-09-13 14:12] VITALS: Ht 154.9 cm; Wt 106.1 kg
--- NOTE | 2016-09-13 15:30 | NUR ---
Inquired to charge nurse Lizz and nurse Rudolph regarding blood administration needs on this patient. Will assist when available.
--- NOTE | 2016-09-13 18:00 | NUR ---
IV needs resiting for blood, attempts by nurse Ailyn unsuccessful right wrist, unsuccessful attempt per this nurse with 20g angiocath to left wrist. Blood returned to lab within time frame until IV access.
--- NOTE | 2016-09-13 19:58 | NUR ---
PATIENT RESTING IN BED WITH DAUGHTER AT BEDSIDE AND DENIES NEEDS AT THIS TIME. BED IN LOWEST POSITION AND CALL LIGHT WITHIN REACH. ENCOURAGED THE PATIENT TO CALL IF SHE HAS NEEDS.
[2016-09-13 20:00] VITALS: BP 121/54
[2016-09-14] VITALS (12 sets, daily range): BP systolic 95–145; BP diastolic 41–71
--- NOTE | 2016-09-14 00:26 | NUR ---
BEGAN ADMINISTERING 1 UNIT OF PRBC PER ORDERS.
[2016-09-14 05:07] LABS: BASOPHILS 0.6 % (0-2); EOSINOPHILS 1.9 % (0-7); HEMATOCRIT 30.9 % (36.0-48.0); HEMOGLOBIN 9.6 g/dL (12-16); IMMATURE GRANULOCYTES 0.1 % (0-5); LYMPHOCYTES 35.8 % (15-50); MCH 24.7 pg (26.0-34.0); MCHC 31.1 g/dL (31.0-37.0); MCV 79.6 fL (80.0-100.0); MEAN PLATELET VOLUME 10.6 fL (7.4-10.4); NEUTROPHILS 50.6 % (40-80); PLATELET COUNT 429 10x3/uL (130-400); RBC 3.88 10x6/uL (4.00-5.40); RDW 16.9 % (11.5-14.5)
[2016-09-14 05:21] LABS: CALC OSMOLALITY 278 mosm/kg (275-300); CALCIUM 7.9 mg/dL (8.5-10.1); CARBON DIOXIDE 27.8 mmol/L (21.0-32.0); CHLORIDE - SERUM 105 mmol/L (98-107); CREATININE - SERUM 0.7 mg/dL (0.6-1.3); GLUCOSE 96 mg/dL (74-106); POTASSIUM - SERUM 3.8 mmol/L (3.5-5.1); SODIUM 140 mmol/L (136-145); UREA NITROGEN 12 mg/dL (7-18); VANCOMYCIN - TROUGH 11.9 ug/mL (10.0-20.0); eGFR NON AFRICAN AMERICAN 86 mL/min (90-120)
--- NOTE | 2016-09-14 07:30 | NUR ---
PT ASSESSMENT COMPLETE AWAKE AND ALERT ORINETD X 3 LUNGS CLEAR BILATERALLY NO ACUTE DISTRESS NOTED VOICES ALL NEEDS TO STAFF HAS SURGICAL DRESSING IN PLACE WITH IMMOBILIZER NOTED CALL LIGHT IN REACH
--- NOTE | 2016-09-14 10:25 | NUR ---
09/14/2016 10:23 DCP: Discharge Planning CM REASSESSMENT NOTE: PT SIGNED THE [facility] FORM FOR [facility] [id number]: Kim Kendrick
--- NOTE | 2016-09-14 11:22 | NUR ---
CM NOTE: VARUN (DAUGHTER) STATES SHE IS CALLING [facility] AND IS GOING TO RENT A HOSPITAL BED FOR HER MOM & WANTED US TO KNOW THAT SHE IS SETTING THAT UP FOR HER. CM WILL CONTINUE TO FOLLOW AND ASSIST IF NEEDED DANY GUTIÉRREZ RN
--- NOTE | 2016-09-14 11:46 | NUR ---
AWAKE AND ALERT. SITTING UP IN CHIAR AT BEDSDIE. DRESSING TO RIGHT KNEE IS DRY AND INTACT. IMMOBILYZER IN PLACE. C/O SOME PAIN AT THIS TIME. WILL CHECK ON PRN.
--- NOTE | 2016-09-14 11:58 | NUR ---
09/14/2016 11:57 DCP: Discharge Planning CM SENT REFERRAL TO [facility] [id number]: Kim Kendrick
[2016-09-14] MEDS ORDERED: ELIQUIS2.5 MG PO (13:05)
--- NOTE | 2016-09-14 13:06 | NUR ---
CM NOTE: PT TO DISCHARGE LATER TODAY HOME HEALTH WITH PT SET UP WITH [facility]. FAMILY DRIVING HER HOME & FAMILY WITH BE STAYING WITH PT. DANY GUTIÉRREZ RN
--- NOTE | 2016-09-14 15:35 | NUR ---
PT DISCHARGED AT THIS TIME ALL DISCHARGE INSTRUCTIONS GIVEN AND UNDERSTANDING EXPRESSED PER PT AND DAUGHTER. PIV DISCONTINUED PER ORDER IN TACT. TRANSFERED TO WHEELCHAIR PER THERAPY STAFF AND THIS NURSE. ALSO ASSISTED TO CAR PER THIS NURSE AND THERAPY STAFF
--- NOTE | 2016-09-14 17:32 | NUR ---
CM NOTE: PT DISCHARGED HOME WITH FAMILY. [facility] SET UP ALONG WITH PT. SEE OTHER CM NOTES . PT DISCHARGED HOME IN STABLE CONDITION . WITHOUT ANY OTHER NEEDS OR CONCERNS AT THIS TIME. DANY GUTIÉRREZ RN
--- NOTE | 2016-10-13 15:24 | OP ---
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 PROCEDURE: Excisional debridement of wound dehiscence with closure. SURGEON: Candido Winchester MD ANESTHESIA: General. INTRAOPERATIVE COMPLICATIONS: None. SUMMARY OF PATHOLOGIC FINDINGS: The patient had a deep wound dehiscence that required a substantial amount of sharp debridement with closure. OPERATIVE SUMMARY IN DETAIL: After obtaining the appropriate orthopedic surgery consent as well as anesthetic consultation, evaluation and clearance, the patient was brought to the operating room and placed on the operating table in supine position. After general laryngeal mask was administered, tourniquet was placed about the proximal aspect of the right lower extremity. Right lower extremity was prepped and draped in routine sterile fashion. The tourniquet was not deployed during this case. The inferior portion of the wound that had dehisced was immediately irrigated using a bulb syringe. Having completed this, a scalpel was utilized to cut away the portions of tissue that was seen. This was taken down to the level of the joint itself where serial and sequential debridement of any nonviable appearing tissue was done. This was then followed by closure of the deep wound using #1 Vicryl. This was followed further by closure of the superficial wound using combination of jenny and large 0 Prolene sutures placed in [id number]-near fashion. When it was felt that the approximation was good, sterile dressings were applied. The patient was awakened, taken to recovery room in stable condition. All final needle and sponge counts were correct. TRANSINT:[id number] Voice Confirmation ID: [id number] DOCUMENT ID: [id number] ANNABELLA KELLOGG, CANDIDO JUDGE at 1524 CC: [id number] DICTATION DATE: 10/12/16 1357 LOOP SEWER: 10/13/16 0113 DIS IN 09/14/16 [id number] [place] [address]
== END 2016-09-14 15:38 | disposition home health service (06) | DRG 902 ==
LOC: D.MS 15:42
PROVIDERS: ADMIT Orthopaedic Surgery
PROC: 0JBN0ZZ Excision of Right Lower Leg Subcutaneous Tissue and Fascia, Open Approach (ICD-10-PCS; principal; 2016-09-12)
DX: T81.31XA Disruption of external operation (surgical) wound, not elsewhere classified, initial encounter (principal); D62 Acute posthemorrhagic anemia; Z68.41 Body mass index [BMI] 40.0-44.9, adult; Z96.651 Presence of right artificial knee joint; E11.9 Type 2 diabetes mellitus without complications; I10 Essential (primary) hypertension; I25.10 Atherosclerotic heart disease of native coronary artery without angina pectoris; E66.01 Morbid (severe) obesity due to excess calories; K21.9 Gastro-esophageal reflux disease without esophagitis

== ENCOUNTER 2016-10-25 14:28 | Inpatient (IN) | payer MEDICARE ==
[~2016-10-25] VITALS: Ht 154.9 cm; Wt 108.0 kg
--- NOTE | 2016-10-25 15:25 | NUR ---
PATIENT RECEIVED TO FLOOR FROM ADMISSIONS VIA WHEELCHAIR WITH STAFF AND FAMILY. NO SIGNS OF DISTRESS NOTED. TRANSFERRED SELF TO BED. ORIENTED TO ROOM. SIDE RAILS UP X2. BED IN LOW POSITION. CALL LIGHT IN REACH.
[2016-10-25] MEDS ORDERED: VIBRAMYCIN 100100 MG PO (15:29)
[2016-10-25] MEDS ORDERED: ULTRAM50 MG PO (15:29)
[2016-10-25 15:40] VITALS: BP 130/73; BMI 45.4
[2016-10-25 16:17] LABS: BASOPHILS 0.3 % (0-2); EOSINOPHILS 0.2 % (0-7); HEMATOCRIT 35.7 % (36.0-48.0); IMMATURE GRANULOCYTES 0.2 % (0-5); LYMPHOCYTES 27.5 % (15-50); MCH 22.9 pg (26.0-34.0); MCHC 30.8 g/dL (31.0-37.0); MCV 74.4 fL (80.0-100.0); MEAN PLATELET VOLUME 10.1 fL (7.4-10.4); MONOCYTES 8.9 % (2-11); NEUTROPHILS 62.9 % (40-80); PLATELET COUNT 369 10x3/uL (130-400); WBC 11.5 10x3/uL (4.8-10.8)
--- NOTE | 2016-10-25 16:20 | NUR ---
22 GAUGE IV SITED TO RIGHT FOREARM X2 ATTEMPT. FLUSHES EASY WITH BRISK BLOOD RETURN PRESENT. SECURED WITH TAPE AND TEGADERM. WELL TOLERATED.
[2016-10-25 16:41] LABS: HEMOGLOBIN A1C 6.1 % (4.8-6.0)
--- NOTE | 2016-10-25 17:00 | NUR ---
EKG SHOWS AFIB WITH RVR. PHYSICIAN PAGED WILL AWAIT CALLBACK
[2016-10-25 17:04] LABS: C-REACTIVE PROTEIN 5.9 mg/dL (0.0-0.9); CALC OSMOLALITY 268 mosm/kg (275-300); CALCIUM 8.5 mg/dL (8.5-10.1); CARBON DIOXIDE 27.1 mmol/L (21.0-32.0); CHLORIDE - SERUM 98 mmol/L (98-107); CREATININE - SERUM 0.7 mg/dL (0.6-1.3); GLUCOSE 121 mg/dL (74-106); POTASSIUM - SERUM 3.7 mmol/L (3.5-5.1); SODIUM 133 mmol/L (136-145); UREA NITROGEN 17 mg/dL (7-18); eGFR NON AFRICAN AMERICAN 86 mL/min (90-120)
[2016-10-25 17:40] LABS: ERYTHROCYTE SEDIMENTATION RATE 40 mm/hr (0-30)
--- NOTE | 2016-10-25 18:22 | NUR ---
TELEMETRY PLACED ON PATIENT. LIPCOAT SPRAYER REPORTS 89 NSR WITH PAC
[2016-10-25 20:00] VITALS: BP 93/40
[2016-10-26] VITALS (7 sets, daily range): BP systolic 95–132; BP diastolic 50–76
[2016-10-26 05:50] LABS: BASOPHILS 0.4 % (0-2); EOSINOPHILS 1.2 % (0-7); HEMATOCRIT 33.9 % (36.0-48.0); HEMOGLOBIN 10.5 g/dL (12-16); IMMATURE GRANULOCYTES 0.2 % (0-5); LYMPHOCYTES 43.2 % (15-50); MCH 22.8 pg (26.0-34.0); MCV 73.5 fL (80.0-100.0); MEAN PLATELET VOLUME 10.5 fL (7.4-10.4); MONOCYTES 9.3 % (2-11); NEUTROPHILS 45.7 % (40-80); PLATELET COUNT 374 10x3/uL (130-400); RBC 4.61 10x6/uL (4.00-5.40); RDW 18.3 % (11.5-14.5)
[2016-10-26 05:59] LABS: WBC 8.2 10x3/uL (4.8-10.8)
[2016-10-26 06:11] LABS: ALBUMIN 2.2 g/dL (3.4-5.0); ALKALINE PHOSPHATASE 117 U/L (46-116); ALT (SGPT) 11 U/L (10-68); BILIRUBIN - TOTAL 0.74 mg/dL (0.2-1.3); CALC OSMOLALITY 270 mosm/kg (275-300); CALCIUM 8.3 mg/dL (8.5-10.1); CARBON DIOXIDE 26.3 mmol/L (21.0-32.0); CHLORIDE - SERUM 99 mmol/L (98-107); CREATININE - SERUM 0.6 mg/dL (0.6-1.3); GLUCOSE 98 mg/dL (74-106); POTASSIUM - SERUM 3.7 mmol/L (3.5-5.1); PROTEIN - SERUM 6.2 g/dL (6.4-8.2); SODIUM 135 mmol/L (136-145); UREA NITROGEN 15 mg/dL (7-18); eGFR NON AFRICAN AMERICAN > 90 mL/min (90-120)
--- NOTE | 2016-10-26 10:40 | NUR ---
PATIENT ALERT IN BED. NO SIGNS OF DISTRESS NOTED. REPOSITIONED FOR COMFORT. FAMILY PRESENT. PRIMARY NURSE KYE ROLAND AT BEDSIDE. CALL LIGHT IN REACH. SIDE RAILS UP X2. BED IN LOW POSITION.
--- NOTE | 2016-10-26 16:05 | NUR ---
Patient Name: MONSE JAVIER Admission Status: Elective Accout number: [id number] Admission Date: 10-25-2016 : 1940 Admission Diagnosis:DISRUPTION OF INTERNAL OPERATION (SURGICAL) WOUND, NEC, Attending: UTE Current LOS: 1 Anticipated DC Date: 10-30-2016 Planned Disposition: Home with Home Health Primary Insurance: [employer] CHOICE PPO [employer] Discharge Planning Comments: CM MET WITH PATIENT REGARDING D/C NEEDS AND PLANS. PATIENT STATED SHE LIVES WITH HER SPOUSE (IAN) AND WILL RETURN THERE AT DISCHARGE. PATIENT STATED SHE HAS 3 STEPS W/RAILS AND A RAMP TO ENTER HOME AND NO STAIRS INSIDE. PATIENT STATED SHE IS INDEPENDENT WITH HER CARE AND HAS A WALKER, WHEELCHAIR, SHOWER CHAIR, BS COMMODE, AND CANE AT HOME. PATIENTS PCP IS DR. CHAN AND PHARMACY IS [facility]. [facility] [address] [facility]. PATIENT IS CURRENT WITH [facility]. CM WILL CONTINUE TO FOLLOW PATIENT WITH D/C NEEDS AND PLANS. [facility]. ON [address] [phone] AIN JAVIER (SPOUSE) [phone] Tool And Gauge Inspector: Estephania Richardson Is the patient Alert and Oriented? Yes 0 * How many steps to enter\exit or inside your home? 3 W/RAILS 0 * PCP DR. CHAN 0 * Pharmacy [facility]. [address] * Preadmission Environment Home with Family 0 * ADLs Independent 0 * Equipment Bedside Commode Cane Shower Chair Walker Wheelchair 0 * List name and contact numbers for known caregivers / representatives who currently or will assist patient after discharge: IAN JAVIER [phone] 0 * Community resources currently utilized Home Health 0 * Please name any agencies selected above. CURRENT WITH [facility] 0 * Additional services required to return to the preadmission environment? Yes 0 * Can the patient safely return to the preadmission environment? Yes 0 * Has this patient been hospitalized within the prior 30 days at any hospital? No 0 Grand Total: 0
[2016-10-27] VITALS: BP 130/64
--- NOTE | 2016-10-27 02:30 | NUR ---
ASSESSED AT THE BEGINNING OF THE SHIFT. PT IS ALERT AND ORIENTED, ABLE TO VERBALIZE NEEDS. SHE IS ALSO ABLE TO GET UP TO BED SIDE COMMODE WITH MINIMAL ASSIT FROM STAFF. SHE HAS A WOUND VAC TO THE KNEE AFTER I&D WAS DONE. TELEMETRY IS IN PLACE SHOWING SINUS RHYTHM. PAIN MEDS HAVE BEEN GIVEN ORDERED AND REQUESTED. THE BED IS LOW, RAILS UP X'S 2 WITH THE CALL LIGHT AT HAND.
[2016-10-27 04:00] VITALS: BP 104/69
[2016-10-27 05:19] LABS: BASOPHILS 0.6 % (0-2); EOSINOPHILS 4.1 % (0-7); HEMATOCRIT 33.1 % (36.0-48.0); HEMOGLOBIN 10.2 g/dL (12-16); IMMATURE GRANULOCYTES 0.3 % (0-5); LYMPHOCYTES 35.4 % (15-50); MCH 22.9 pg (26.0-34.0); MCHC 30.8 g/dL (31.0-37.0); MCV 74.4 fL (80.0-100.0); MEAN PLATELET VOLUME 10.5 fL (7.4-10.4); NEUTROPHILS 50.6 % (40-80); PLATELET COUNT 304 10x3/uL (130-400); RBC 4.45 10x6/uL (4.00-5.40); RDW 18.3 % (11.5-14.5); WBC 7.2 10x3/uL (4.8-10.8)
[2016-10-27 05:51] LABS: ANION GAP 8.7 mmol/L (8-16); BILIRUBIN - TOTAL 0.5 mg/dL (0.2-1.3); CARBON DIOXIDE 26.9 mmol/L (21.0-32.0); POTASSIUM - SERUM 3.6 mmol/L (3.5-5.1); PROTEIN - SERUM 5.6 g/dL (6.4-8.2)
[2016-10-27 05:53] LABS: CREATININE - SERUM 0.8 mg/dL (0.6-1.3)
--- NOTE | 2016-10-27 07:30 | NUR ---
PT ASSESSMENT COMPLETE AWAKE AND ALERT ORINETD X 3 WOUND VAC INTACT TO RIGHT KNEE NO DISTRESS NOTED VOICES ALL NEEDS TO STAFF.
--- NOTE | 2016-10-27 07:55 | NUR ---
UPON ENTERING ROOM, PATIENT RESTING QUIETLY WITH EYES CLOSED. NO SIGNS OF DISTRESS NOTED. PATIENT AROUSED EASILY. BED IN LOWEST POSITION, CALL LIGHT IN REACH BED RAILS UP X'S 2. PATIENT DENIES NEEDS.
[2016-10-27 08:42] VITALS: BP 125/64
--- NOTE | 2016-10-27 11:02 | NUR ---
IV TO LEFT WRIST INFILTRATED. STARTED IV TO RIGHT WRIST 22G X'S 2 ATTEMPTS.
--- NOTE | 2016-10-27 11:02 | NUR ---
D/C IV TO LEFT WRIST WITH CATHETER INTACT.
[2016-10-27 12:52] VITALS: BP 123/69
[2016-10-27 14:07] VITALS: Ht 154.9 cm; Wt 108.0 kg
--- NOTE | 2016-10-27 14:58 | NUR ---
CM REASSESSMENT NOTE: WOUND VAC ORDERED [facility]OUGH [facility].
[2016-10-27 16:45] VITALS: BP 132/78
--- NOTE | 2016-10-27 16:46 | NUR ---
PT RESTING IN BED SEMI FOWLERS POSITION. AROUSES TO VERBAL STEMULI ANSWERS QUESTIONS APPROPRIATLEY.
[2016-10-27 20:00] VITALS: BP 91/42
[2016-10-28] VITALS: BP 102/50
--- NOTE | 2016-10-28 02:51 | NUR ---
ASSESSED AT THE BEGINNING OF THE SHIFT. PT IS ALERT AND ORIENTED, ABLE TO VERBALIZE NEEDS. SHE HAS A WOUND VAC AND DRESING TO HER RIGHT KNEE AND IT IS PATENT. WE ARE ASSISTING HER UP TO THE BEDSIDE COMMODE TO VOID. SHE IS ABLE TO REPOSITION HERSELF IN BED BUT HAS TO HAVE HELP TO PULL UP TO THE TOP OF BED. SHE HAS HAD PAIN MEDS AT HS PER REQUEST BUT SHE IS DOING WELL WITH HER PAIN CONTROL. TELEMETRY REMAINS IN PLACE AND IT WAS SHOWING SINUS RHYTHM AT 82 WHEN CHECHED ON. THE BED IS LOW, RAILS UP X'S 2 WITH THE CALL LIGHT AT HAND.
[2016-10-28 04:00] VITALS: BP 106/52
[2016-10-28 05:28] LABS: BASOPHILS 0.4 % (0-2); EOSINOPHILS 3.3 % (0-7); HEMATOCRIT 30.5 % (36.0-48.0); HEMOGLOBIN 9.3 g/dL (12-16); IMMATURE GRANULOCYTES 0.1 % (0-5); LYMPHOCYTES 36.4 % (15-50); MCH 22.6 pg (26.0-34.0); MCHC 30.5 g/dL (31.0-37.0); MCV 74.2 fL (80.0-100.0); MEAN PLATELET VOLUME 10.6 fL (7.4-10.4); MONOCYTES 8.8 % (2-11); PLATELET COUNT 315 10x3/uL (130-400); RBC 4.11 10x6/uL (4.00-5.40); RDW 18.1 % (11.5-14.5); WBC 7.3 10x3/uL (4.8-10.8)
[2016-10-28 05:40] LABS: ALBUMIN 1.9 g/dL (3.4-5.0); ANION GAP 10.4 mmol/L (8-16); BILIRUBIN - TOTAL 0.5 mg/dL (0.2-1.3); CALCIUM 7.6 mg/dL (8.5-10.1); POTASSIUM - SERUM 3.4 mmol/L (3.5-5.1); PROTEIN - SERUM 5.8 g/dL (6.4-8.2)
[2016-10-28 08:35] VITALS: BP 94/45
[2016-10-28 12:01] VITALS: BP 133/55
[2016-10-28 16:13] VITALS: BP 105/52
[2016-10-28 19:00] VITALS: BP 122/41
--- NOTE | 2016-10-28 20:00 | NUR ---
LYING IN BED,WITHOUT DISTRESS.WITHOUT NEEDS AT PRESENT.CALL LIGHT IN REACH
[2016-10-29 04:00] VITALS: BP 114/63
[2016-10-29 06:03] LABS: BASOPHILS 0.6 % (0-2); HEMOGLOBIN 9.9 g/dL (12-16); IMMATURE GRANULOCYTES 0.2 % (0-5); LYMPHOCYTES 31.7 % (15-50); MCH 23.1 pg (26.0-34.0); MCHC 30.9 g/dL (31.0-37.0); MCV 74.8 fL (80.0-100.0); MEAN PLATELET VOLUME 10.3 fL (7.4-10.4); MONOCYTES 7.5 % (2-11); PLATELET COUNT 313 10x3/uL (130-400); RBC 4.28 10x6/uL (4.00-5.40); RDW 18.2 % (11.5-14.5); WBC 8.1 10x3/uL (4.8-10.8)
[2016-10-29 06:20] LABS: ANION GAP 8.2 mmol/L (8-16); BILIRUBIN - TOTAL 0.5 mg/dL (0.2-1.3); CALCIUM 7.9 mg/dL (8.5-10.1); CARBON DIOXIDE 30.1 mmol/L (21.0-32.0); CREATININE - SERUM 0.9 mg/dL (0.6-1.3); POTASSIUM - SERUM 3.3 mmol/L (3.5-5.1); PROTEIN - SERUM 6.2 g/dL (6.4-8.2)
--- NOTE | 2016-10-29 07:41 | NUR ---
AM ROUNDS - PT IN BED AND APPEARS TO BE SLEEPING WITH EQUAL AND NON LABORED BREATHING. PT HAS AN IV TO RIGHT HAND, 1/2 NS AT 30CC/HR. MONITOR SHOWING SR WITH PVC, HR 73. PT HAS A WOUND VAC THAT APPEARS TO BE WORKING. WILL CONTINUE TO MONITOR
[2016-10-29 08:14] VITALS: BP 104/50
--- NOTE | 2016-10-29 10:22 | NUR ---
STARTED IV TO LEFT LOWER ANTERIOR FOREARM X'S 1 ATTEMPT, 20G. PATIENT TOLERATED WELL.
--- NOTE | 2016-10-29 10:43 | NUR ---
MORNING MEDICATION GIVEN. NO NEEDS AT THIS TIME. WILL CONTINUE OT MONITOR
--- NOTE | 2016-10-29 10:44 | NUR ---
0840 - ACADEMIC DEAN NOTIFIED ME THAT THE PT IS SITTING ON THE FLOOR IN URINE. WALKED INTO ROOM WITH PT SITTING ON THE FLOOR IN URINE. IV HAD BEEN PULLED OUT. CATH TIP INTACT. PT STATES THAT SHE HAS NOT HURT HERSELF. STATES SHE WAS TRYING TO GO TO THE BATHROOM. WOUND VAN STILL INTACT AND APPEARS TO BE WORKING CORRECTLY. STATES SHE SLID OUT OF THE BED AND LANDED ON HER BUTT. NO BRUISING ON HER BUTT. BUTT HAS MINIMAL REDDNESS. MULTIPLE NURSES AND CNAS IN ROOM TO HELP GET HER BACK IN BED SAFELY AND GET HER CLEANED UP. SIDE RAILS UP X2. BED AT LOWEST POSITION. BED ALARM PUT ON. RE-EDUCATED PT TO USE THE CALL MATT AND WAIT FOR ASSISTANCE WHEN SHE NEEDS TO USE THE BATHROOM. V/S TAKEN: BP 128/68 P 71 RESP 18 POX 96% RA 0900 - PAGE INTO DR. WINCHESTER. AWAITING OVERHEAD CLEANER BACK 929 - CALL INTO HOUSE SUP NOTIFIED PAGE INTO DR. WINCHESTER AGAIN. WAITING OVERHEAD CLEANER BEACK 1000 - HOUSE SUP TO SEE PT DR. WINCHESTER CALLED BACK AND NOTIFIED OF PT'S FALL. WILL CONTINUE TO MONITOR
--- NOTE | 2016-10-29 13:03 | NUR ---
1000 - HERE AND NOTIFIED OF FALL. WILL CONTINUE TO MONITOR
[2016-10-29 13:10] VITALS: BP 76/36
--- NOTE | 2016-10-29 15:42 | NUR ---
CONCENTS FOR I&D RIGHT KNEE WITH WOUND VAC PLACEMENT AND ANESTHESIA SIGNED AND PLACE IN CHART.
--- NOTE | 2016-10-29 19:20 | NUR ---
RECIEVED SHIFT REPORT. PT IS LYING IN BED. ALERT AND ORIENTED AND ABLE TO VERBALIZE NEEDS. IV IS PATENT AND FLUIDS ARE RUNNING PER ORDER. PT IS AMBULATORY WITH ASSISTANCE. DRESSING TO RIGHT KNEE C/D/I AND WOUND VAC IN PLACE. PT STATES PAIN IS 2/10. NO NEEDS ARE VERBALIZED AT THIS TIME. WILL CONTINUE TO MONITOR. VISITOR IS AT THE BEDSIDE. SIDE RAILS ARE UP X 2. BED IS IN LOWEST POSITION. BED ALARM IS ON FOR SAFETY. CALL LIGHT IS WITHIN REACH.
[2016-10-29 20:00] VITALS: BP 123/69
--- NOTE | 2016-10-29 20:20 | NUR ---
SHIFT ASSESSMENT COMPLETED. NIGHT MEDS GIVEN WITH NO PROBLEMS. PT RECIEVED NO INSULIN PER SLIDING SCALE FOR WAHP=412. NO NEEDS ARE VOICED. WILL MONITOR. VISITOR AT BEDSIDE. SIDE RAILS X 2. BED LOW. BED ALARM ON. CALL LIGHT IN REACH.
[2016-10-30] VITALS: BP 110/39
[2016-10-30 04:00] VITALS: BP 117/64
[2016-10-30 05:53] LABS: BASOPHILS 0.4 % (0-2); EOSINOPHILS 1.2 % (0-7); HEMATOCRIT 33.8 % (36.0-48.0); HEMOGLOBIN 10.5 g/dL (12-16); IMMATURE GRANULOCYTES 0.1 % (0-5); LYMPHOCYTES 31.3 % (15-50); MCHC 31.1 g/dL (31.0-37.0); MEAN PLATELET VOLUME 10.7 fL (7.4-10.4); PLATELET COUNT 300 10x3/uL (130-400); RBC 4.57 10x6/uL (4.00-5.40); RDW 18.3 % (11.5-14.5); WBC 8.2 10x3/uL (4.8-10.8)
[2016-10-30 06:13] LABS: ALBUMIN 2.1 g/dL (3.4-5.0); ANION GAP 12.1 mmol/L (8-16); BILIRUBIN - TOTAL 0.59 mg/dL (0.2-1.3); CALCIUM 8.3 mg/dL (8.5-10.1); CARBON DIOXIDE 28.3 mmol/L (21.0-32.0); CREATININE - SERUM 0.9 mg/dL (0.6-1.3); POTASSIUM - SERUM 3.4 mmol/L (3.5-5.1); PROTEIN - SERUM 6.6 g/dL (6.4-8.2)
--- NOTE | 2016-10-30 07:02 | NUR ---
PT REC'D FROM CHICA SÁNCHEZ. RESTING IN BED WATCHING TV. AAOX4. NO COMPLAINTS OF PAIN. WOUND VAC TO R KNEE WITH [employer] SEAL AND NOTHING IN COLLECTION CHAMBER CURRENTLY. PIV TO R FA FREE OF REDNESS AND SWELLING. TELEMETRY REAPPLIED. REGULAR HEART RATE AND RHYTHM. LUNG SOUNDS CLEAR AND EQUAL BILAT. BOWEL SOUNDS ACTIVE X4 QUADRANTS. BED LOW, CALL LIGHT IN REACH, DENIES NEEDS. CPOC.
[2016-10-30 09:28] VITALS: BP 121/96
--- NOTE | 2016-10-30 09:40 | NUR ---
PATIENT UP AMBULATING IN HALLWAY WITH PT. NO SIGNS OF DISTRESS NOTED.
[2016-10-30 12:16] VITALS: BP 104/76
--- NOTE | 2016-10-30 14:06 | NUR ---
PT PREOP'D AN READY FOR SURGERY
--- NOTE | 2016-10-30 16:53 | NUR ---
REPORT REC'D FROM CHICA MEIER, IN RECOVERY. ROOM READY AND AWAITING PT ARRIVAL.
[2016-10-30 17:01] VITALS: BP 99/33
--- NOTE | 2016-10-30 21:51 | NUR ---
REC'D PATIENT LYING IN BED. DENIED PAIN AT THIS TIME. ALERT AND ORIENTED X4. NO DISTRESS NOTED. FAMILY MEMBER WAS CONCERNED ABT BP, WAS READING 73/39, I RECHECKED MANUALLY AND GOT 110/60. WILL CONT TO MONITOR, WILL ADMIN PM/AM MEDS PRESCRIBED. DAUGHTER IS CURRENTLY AT BEDSIDE. DENIED FURTHER NEEDS AT THIS TIME. BED LOW, LOCKED, CALL LIGHT IN REACH, ALARM ON.
--- NOTE | 2016-10-31 01:49 | NUR ---
PATIENT RESTING COMFORTABLE IN BED. WILL CONT TO MONITOR. NO DISTRESS NOTED. DAUGHTER IS AT BEDSIDE. BED LOW, LOCKED, CALL LIGHT IN REACH.
--- NOTE | 2016-10-31 02:00 | NUR ---
PT IN BED WITH NO DISTRESS. RESPIRATIONS EVEN AND UNLABORED. FAMILY AT BEDSIDE. SIDE RAILS X 2. BED LOW. BOX ALARM ON. CALL LIGHT IN REACH.
[2016-10-31 04:00] VITALS: BP 100/39
--- NOTE | 2016-10-31 07:10 | NUR ---
PT REC'D FROM KYE MELGOZA. RESTING IN BED WITH EYES CLOSED. RESP EVEN AND UNLABORED. NO SIGNS OF DISTRESS. WOUND VAC PULLING SEROSANGUINOUS FLUID TO COLLECTION CHAMBER. BED LOW, CALL LIGHT IN REACH, DENIES NEEDS. CPOC.
[2016-10-31 08:18] LABS: BASOPHILS 0.5 % (0-2); HEMATOCRIT 31.8 % (36.0-48.0); HEMOGLOBIN 9.8 g/dL (12-16); IMMATURE GRANULOCYTES 0.2 % (0-5); LYMPHOCYTES 40.7 % (15-50); MCH 22.9 pg (26.0-34.0); MCHC 30.8 g/dL (31.0-37.0); MCV 74.3 fL (80.0-100.0); MEAN PLATELET VOLUME 10.4 fL (7.4-10.4); MONOCYTES 7.7 % (2-11); NEUTROPHILS 48.9 % (40-80); PLATELET COUNT 271 10x3/uL (130-400); RBC 4.28 10x6/uL (4.00-5.40); RDW 18.4 % (11.5-14.5)
[2016-10-31 08:20] LABS: WBC 5.6 10x3/uL (4.8-10.8)
[2016-10-31 08:35] LABS: ANION GAP 11.5 mmol/L (8-16); BILIRUBIN - TOTAL 0.55 mg/dL (0.2-1.3); CALCIUM 8.2 mg/dL (8.5-10.1); CARBON DIOXIDE 28.1 mmol/L (21.0-32.0); CREATININE - SERUM 0.9 mg/dL (0.6-1.3); POTASSIUM - SERUM 3.6 mmol/L (3.5-5.1); PROTEIN - SERUM 6.2 g/dL (6.4-8.2)
--- NOTE | 2016-10-31 08:53 | NUR ---
MORNING MEDS PASSED AT THIS TIME. FAMILY AT BEDSIDE. BED LOW, CALL LIGHT IN REACH, DENIES NEEDS. CPOC.
[2016-10-31 08:54] VITALS: BP 140/59
--- NOTE | 2016-10-31 10:00 | NUR ---
PT UP AMBULATING THROUGH HALLS WITH PHYSICAL THERAPY. WALKER USED, BUT LITTLE TO NO MINIMAL ASSISTANCE FROM THERAPIST. ESCORTED PT BACK TO CHAIR AT BEDSIDE.
--- NOTE | 2016-10-31 10:56 | NUR ---
PT AOX4 RESP EVEN AND NONLABORED PT DENIES NEEDS AT THIS TIME IV TO RIGHT FOREARM AT THIS TIME PT HERE FOR INFECTED RIGHT KNEE FOR THIS VISIT. SRX2 BED AT LOWEST SETTING CALL LIGHT WITHIN REACH WILL CONTINUE TO MONITOR
--- NOTE | 2016-10-31 12:25 | NUR ---
ASSISTED PT OFF OF BEDSIDE COMMODE AND BACK TO BED. VOIDED APPROXIMATELY 200CC'S OF CLEAR YELLOW URINE. REPOSITIONED UP IN BED. BED LOW, CALL LIGHT IN REACH, DENIES NEEDS. CPOC.
--- NOTE | 2016-10-31 14:11 | NUR ---
PRN PAIN MEDICATION ADMINISTERED PER PT COMPLAINTS OF 8/10 R KNEE PAIN. WILL REASSESS. FAMILY AT BEDSIDE.
[2016-10-31 19:00] VITALS: BP 159/60
--- NOTE | 2016-10-31 19:30 | NUR ---
RECIEVED SHIFT REPORT. PT IS LYING IN BED. ALERT AND ORIENTED AND ABLE TO VERBALIZE NEEDS. IV IS PATENT AND FLUIDS ARE RUNNING PER ORDER. DRESSING TO RIGHT KNEE C/D AND WOUND VAC IN PLACE. PT IS AMBULATORY WITH ASSISTANCE. PT STATES PAIN IS 5/10. NO NEEDS ARE VERBALIZED AT THIS TIME. WILL CONTINUE TO MONITOR. VISITOR AT BEDSIDE. SIDE RAILS ARE UP X 2. BED IS IN LOWEST POSITION. BOX ALARM IS ON FOR SAFETY. CALL LIGHT IS WITHIN REACH.
--- NOTE | 2016-10-31 20:41 | NUR ---
SHIFT ASSESSMENT COMPLETED. NIGHT MEDS GIVEN WITH NO PROBLEMS. PT RECIEVED NO INSULIN PER SLIDING SCALE FOR UIGY=275. NO NEEDS ARE VOICED AT THIS TIME. WILL MONITOR. VISITOR AT BEDSIDE. SIDE RAILS X 2. BED LOW. BOX ALARM ON. CALL LIGHT IN REACH.
[2016-11-01] VITALS: BP 128/48
[2016-11-01 04:00] VITALS: BP 121/46
[2016-11-01 09:00] VITALS: BP 120/46
[2016-11-01 12:31] VITALS: BP 97/50
--- NOTE | 2016-11-01 13:54 | NUR ---
PATIENT LEAVING ROOM VIA BED WITH STAFF FROM THE O.R.
--- NOTE | 2016-11-01 14:22 | NUR ---
ASSISTED PATIENT FROM THE BED TO THE BEDSIDE COMMODE. PATIENT VOIDED, ASSISTED PATIENT BACK TO BED. BED ALARM.
[2016-11-01 17:11] VITALS: BP 114/47
--- NOTE | 2016-11-01 19:45 | NUR ---
RECIEVED SHIFT REPORT. PT IS LYING IN BED. ALERT AND ORIENTED AND ABLE TO VERBALIZE NEEDS. IV IS PATENT AND FLUIDS ARE RUNNING PER ORDER. PT IS AMBULATORY WITH ASSISTANCE. DRESSING TO RIGHT KNEE C/D WITH WOUND VAC IN PLACE. PT STATES PAIN IS 9/10. NO NEEDS ARE VERBALIZED AT THIS TIME. WILL CONTINUE TO MONITOR. VISITOR IS AT BEDSIDE. SIDE RAILS ARE UP X 2. BED IS IN LOWEST POSITION. YONAS MAT IS ON FOR SAFETY. CALL LIGHT IS WITHIN REACH.
[2016-11-01 20:00] VITALS: BP 95/41
--- NOTE | 2016-11-01 21:34 | NUR ---
SHIFT ASSESSMENT COMPLETED. NIGHT MEDS GIVEN WITH NO PROBLEMS. PT RECIEVED NO INSULIN PER SLIDING SCALE FOR NWDJ=007. NO NEEDS ARE VOICED. WILL MONITOR. VISITOR AT BEDSIDE. SIDE RAILS X 2. BED LOW. YONAS ON. CALL LIGHT IN REACH.
[2016-11-02] VITALS: BP 97/43
[2016-11-02 04:00] VITALS: BP 102/50
--- NOTE | 2016-11-02 07:30 | NUR ---
PT AOX4 RESP EVEN AND NONLABORED PT DENIES NEEDS AT THIS TIME IV TO RIGHT FOREARM PATENT AND INTACT SRX2 BED AT LOWEST SETTING CALL LIGHT WITHIN REACH WILL CONTINUE TO MONITOR
[2016-11-02 09:27] VITALS: BP 128/60
[2016-11-02 13:20] VITALS: BP 102/54
--- NOTE | 2016-11-02 14:37 | NUR ---
NUTRITION MONITORING & EVAL CHART REVIEWED. PT VISIT. TOLERATING REG DIET, PO INTAKE ONLY ~25% RECENT MEALS. PT STATES "I'M JUST NOT HUNGRY". PT REPORTS +BM TODAY> RD FOLLOWING
[2016-11-02 16:40] VITALS: BP 120/57
--- NOTE | 2016-11-02 16:52 | NUR ---
CM NOTE: [employer] OUT OF NETWORK WITH [employer] ; WILL ORDER THROUGH [facility]
[2016-11-02 20:00] VITALS: BP 119/48
--- NOTE | 2016-11-02 20:53 | NUR ---
PT RECIEVED ON WALKING ROUNDS REPORT RECIEVED AND CARE TRANSFERED NO DISTRESS NOTED PT FAMILY AT BEDSIDE CALL TITUS MCDONALD SIDE RAILS UP X 2 BED ALARM ON AND FUNCTIONING PROPERLY WOUND VAC NOTED TO RIGHT KNEE WILL MONITOR
--- NOTE | 2016-11-02 23:26 | NUR ---
RN NOTE: PT SLEEPING ON RIGHT SIDE WITH EASY RESPIRATIONS. 1/2 NS INFUSING AT 50 ML / HR. WILL CONTINUE TO MONITOR FOR NEEDS. CALL LIGHT WITHIN REACH.
[2016-11-03] VITALS: BP 111/38
--- NOTE | 2016-11-03 02:22 | NUR ---
ALERTED TO PT ATTEMPTING TO TRANSFER SELF TO TOILET WOUND VAC INTACT PT ASSISTED PER STAFF TO TOILET AND BACK TO BED WITH NO DIFFICULTY BED ALARM TURNED ON
[2016-11-03 04:00] VITALS: BP 104/59
--- NOTE | 2016-11-03 05:36 | NUR ---
NO ACUTE DISTRESS NOTED VOICES ALL NEEDS TO STAFF
[2016-11-03 05:59] LABS: HEMATOCRIT 31.7 % (36.0-48.0); HEMOGLOBIN 9.7 g/dL (12-16); MCH 22.5 pg (26.0-34.0); MCHC 30.6 g/dL (31.0-37.0); MCV 73.5 fL (80.0-100.0); MEAN PLATELET VOLUME 10.7 fL (7.4-10.4); RBC 4.31 10x6/uL (4.00-5.40); RDW 18.3 % (11.5-14.5); WBC 6.9 10x3/uL (4.8-10.8)
[2016-11-03 06:20] LABS: ANION GAP 11.2 mmol/L (8-16); CARBON DIOXIDE 27.9 mmol/L (21.0-32.0); CREATININE - SERUM 0.9 mg/dL (0.6-1.3); POTASSIUM - SERUM 3.1 mmol/L (3.5-5.1)
--- NOTE | 2016-11-03 07:00 | NUR ---
REPORT RECIEVED ASSUMED CARE. PATIENT IN BED WITH IV TURNED OFF. HARD AND RED. IV REMOVED AT THIS TIME. SUPPOSE TO GET PICC LINE. WILL WAIT FOR PICC LINE TO BE PLACED TO GIVE IV MEDS.
--- NOTE | 2016-11-03 08:15 | NUR ---
PATIENT IN BED WITH NO COMPLAINTS AT THIS TIME. SITTING UP EATING. CALL LIGHT WITHIN REACH.
[2016-11-03 08:44] VITALS: BP 136/67
--- NOTE | 2016-11-03 12:04 | NUR ---
WOUND VAC DRESSING CHANGE WOUND TYPE: surgical WOUND LOCATION: right knee WOUND AGE IN MONTHS: unknown DEBRIDEMENT ATTEMPTED IN LAST 10 DAYS? DATE/TYPE: I & D 10/30/16 SERIAL DEBRIDEMENTS REQUIRED? unknown MEASUREMENT DATE: 11/03/16 3cm x 1.5cm x 4.5cm FULL THICKNESS? yes MUSCLE, TENDON OR BONE EXPOSED? probed bone UNDERMINING? no TUNNELING/SINUS? no APPEARANCE OF WOUND BED : red EXUDATE (AMOUNT, COLOR, ODOR): serosanguinous/small/no odor FOAM TYPE: black # OF PIECES USED: 1 in wound + 1 for trac pad = 2 total EDUCATION: Purpose of wound vac, healing process, frequency of dressing changes, home vac management -125mmhg mod continuous
[2016-11-03 12:40] VITALS: BP 142/58
--- NOTE | 2016-11-03 13:50 | NUR ---
PATIENT UP AMBULATING IN [place] WITH PT
--- NOTE | 2016-11-03 16:00 | NUR ---
PATIENT IN BED WITH NO COMPLAINTS AT THIS TIME. FAMILY AT BEDSIDE. CALL LIGHT WITHIN REACH. BED ALARM ON.
[2016-11-03 16:12] VITALS: BP 115/73
[2016-11-03] MEDS ORDERED: ROCEPHIN 1 GM/D51 G1 IV (16:39)
[2016-11-03] MEDS ORDERED: HYDROCODONE-APA1 TAB PO (16:47)
--- NOTE | 2016-11-03 17:13 | NUR ---
CM REASESSMENT NOTE: IV ABX FROM [place] WILL BE DELIVERED TO HOME IN AM. [facility] DELIVERED WOUND VAC AND NURSE WILL PLACE ON PATIENT IN AM AT [place]. PATIENT HAS [facility] AND THEY HAVE BEEN NOTIFIED.
[2016-11-03 19:00] VITALS: BP 119/61
--- NOTE | 2016-11-03 19:20 | NUR ---
PT LYING IN BED VISITING WITH SPOUSE, ASSISTED UP TO BSC WITH NO DIFFICULTY, ASSESSMENT COMPLETED NO ACUTE DISTRESS NOTED, RETURNED TO BED, SR'S UP, YONAS AND BED ALARM IN PLACE, WOUND VAC FUNCTIONING AT 125MM/HG, DENIES NEEDS AT THIS TIME, CL IN REACH, WILL MONITOR
--- NOTE | 2016-11-03 21:07 | NUR ---
MEDS GIVEN PER MAR, FRANCO WELL, DENIES NEEDS, FALL PRECAUTIONS IN PLACE, CL IN REACH
--- NOTE | 2016-11-03 23:18 | NUR ---
RESTING WITH EYES CLOED, NO DISTRESS NOTED, W. VAC IN PLACE, SR'S UP, CL IN REACH, ALARMS ON
[2016-11-04 00:14] VITALS: BP 120/56
[2016-11-04 04:00] VITALS: BP 116/72
[2016-11-04 08:18] VITALS: BP 126/73
[2016-11-04 12:24] VITALS: BP 120/60
--- NOTE | 2016-11-04 15:50 | NUR ---
DRESSING TO RIGHT KNEE CHANGED BY MASOOD HELMS RN. PATIENT TOLERATED WELL. ADVANCE BRAND WOUND VAC APPLIED. INSTRUCTED PATIENT AND PATIENT'S DAUGHTER ON THE WOUND VAC. BOTH VERBALIZED UNDERSTANDING. ANSWERED ALL QUESTIONS. INSTRUCTED PATIENT ON FLUSHING THE PICC LINE. PATIENT VERBALIZED UNDERSTANDING AND VERBALIZED STEPS TO FLUSHING THE PICC LINE. PATIENT DEMONSTRATED FLUSHING THE PICC LINE. PATIENT DEMONSTRATED ALL STEPS CORRECTLY.
--- NOTE | 2016-11-04 16:15 | NUR ---
PATIENT LEFT VIA WHEELCHAIR.
--- NOTE | 2016-11-04 18:19 | NUR ---
LATE ENTRY CM FAXED DISCHARGE INSTRUCTIONS, PICC NOTE, 11/04 MD NOTE AND D/C MEDICATION LIST TO [facility]. CM SPOKE WITH OC AT [facility] TO ADVISE OF DISCHARGE.
== END 2016-11-04 16:16 | disposition home health service (06) | DRG 908 ==
LOC: D.MS 14:28
PROVIDERS: Family Medicine; ADMIT Orthopaedic Surgery
PROC: 0S9C0ZZ Drainage of Right Knee Joint, Open Approach (ICD-10-PCS; principal; 2016-10-26 15:00)
PROC: 0S9C0ZZ Drainage of Right Knee Joint, Open Approach (ICD-10-PCS; 2016-10-30 14:15)
PROC: 02HV33Z Insertion of Infusion Device into Superior Vena Cava, Percutaneous Approach (ICD-10-PCS; 2016-11-03)
PROC: B548ZZA Ultrasonography of Superior Vena Cava, Guidance (ICD-10-PCS; 2016-11-03)
DX: T81.32XA Disruption of internal operation (surgical) wound, not elsewhere classified, initial encounter (principal); D62 Acute posthemorrhagic anemia; Z68.42 Body mass index [BMI] 45.0-49.9, adult; E11.65 Type 2 diabetes mellitus with hyperglycemia; I25.10 Atherosclerotic heart disease of native coronary artery without angina pectoris; E66.01 Morbid (severe) obesity due to excess calories; K21.9 Gastro-esophageal reflux disease without esophagitis; G47.33 Obstructive sleep apnea (adult) (pediatric); F32.9 Major depressive disorder, single episode, unspecified; F41.9 Anxiety disorder, unspecified; I10 Essential (primary) hypertension; R32 Unspecified urinary incontinence; B37.2 Candidiasis of skin and nail

== ENCOUNTER → 2016-12-01 12:00 | Outpatient (CLI) | payer MEDICARE ==
[2016-10-27 14:07] VITALS: BMI 44.9
[~2016-12-01 12:00] MED LIST changes: +ROCEPHIN 1 GM/D51 G1 IV; +VIBRAMYCIN 100100 MG PO
[2016-12-01 12:09] LABS: BASOPHILS 0.7 % (0-2); EOSINOPHILS 1.2 % (0-7); HEMATOCRIT 33.8 % (36.0-48.0); HEMOGLOBIN 10.4 g/dL (12-16); IMMATURE GRANULOCYTES 0.3 % (0-5); MCH 23.1 pg (26.0-34.0); MCHC 30.8 g/dL (31.0-37.0); MCV 75.1 fL (80.0-100.0); MEAN PLATELET VOLUME 11.1 fL (7.4-10.4); MONOCYTES 9.1 % (2-11); NEUTROPHILS 46.7 % (40-80); RDW 20.1 % (11.5-14.5)
[2016-12-01 12:10] LABS: PLATELET COUNT 319 10x3/uL (130-400)
[2016-12-01 13:23] LABS: ERYTHROCYTE SEDIMENTATION RATE 40 mm/hr (0-30)
== END | disposition home or self-care (01) ==
LOC: D.LABREF 12:00
PROVIDERS: Orthopaedic Surgery
DX: T81.31XA Disruption of external operation (surgical) wound, not elsewhere classified, initial encounter (principal)

== ENCOUNTER → 2016-12-04 16:57 | Outpatient (CLI) | payer MEDICARE ==
[2016-10-27 14:07] VITALS: BMI 44.9
[2016-12-04 19:05] LABS: BASOPHILS 0.5 % (0-2); EOSINOPHILS 0.6 % (0-7); HEMATOCRIT 37.3 % (36.0-48.0); HEMOGLOBIN 11.4 g/dL (12-16); IMMATURE GRANULOCYTES 0.1 % (0-5); LYMPHOCYTES 39.4 % (15-50); MCH 23.1 pg (26.0-34.0); MCHC 30.6 g/dL (31.0-37.0); MCV 75.5 fL (80.0-100.0); MEAN PLATELET VOLUME 11.4 fL (7.4-10.4); MONOCYTES 6.3 % (2-11); NEUTROPHILS 53.1 % (40-80); PLATELET COUNT 350 10x3/uL (130-400); RBC 4.94 10x6/uL (4.00-5.40); RDW 20.8 % (11.5-14.5); WBC 9.7 10x3/uL (4.8-10.8)
[2016-12-04 20:06] LABS: ERYTHROCYTE SEDIMENTATION RATE 34 mm/hr (0-30)
== END | disposition home or self-care (01) ==
LOC: D.LABREF 16:57
PROVIDERS: Orthopaedic Surgery
DX: T81.31XA Disruption of external operation (surgical) wound, not elsewhere classified, initial encounter (principal)

== ENCOUNTER 2017-01-15 06:59 | Day surgery (SDC) | payer MEDICARE ==
[2017-01-12 10:51] LABS: HEMATOCRIT 36.3 % (36.0-48.0); HEMOGLOBIN 11.2 g/dL (12-16); MCH 23.8 pg (26.0-34.0); MCHC 30.9 g/dL (31.0-37.0); MCV 77.2 fL (80.0-100.0); MEAN PLATELET VOLUME 11.2 fL (7.4-10.4); RBC 4.7 10x6/uL (4.00-5.40); RDW 18.8 % (11.5-14.5)
[2017-01-12 11:00] LABS: ANION GAP 9.3 mmol/L (8-16); CALCIUM 8.5 mg/dL (8.5-10.1); CARBON DIOXIDE 30.8 mmol/L (21.0-32.0); CREATININE - SERUM 0.9 mg/dL (0.6-1.3); POTASSIUM - SERUM 4.1 mmol/L (3.5-5.1)
[~2017-01-15] VITALS: Ht 154.9 cm; Wt 107.3 kg
[~2017-01-15 06:59] MED LIST changes: +VALIUM 2 MG TAB2 MG PO
[2017-01-15 08:26] VITALS: BP 111/57; BMI 42.6
[2017-01-15 12:05] VITALS: BP 127/63
--- NOTE | 2017-01-15 12:05 | NUR ---
RECEIVED TO ROOM 2226 FROM RECOVERY ROOM VIA BED. VSS. AT BEDSIDE. CALL LIGHT IN REACH. WILL CONTINUE WITH PLAN OF CARE.
[2017-01-15 12:28] VITALS: BP 105/42
--- NOTE | 2017-01-15 14:20 | NUR ---
RESTING WITH EYES CLOSED. RESP EVEN AND UNLABORED. CALL LIGHT IN REACH.
--- NOTE | 2017-01-15 14:47 | OP ---
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 PROCEDURE: Rotational flap for closure. SURGEON: Candido Winchester MD ANESTHESIA: General. INTRAOPERATIVE COMPLICATIONS: None. SUMMARY OF PATHOLOGIC FINDINGS: This had been negative for infection x3 and continued to have an open draining sinus. We had after long discussion with the patient an attempt to close this without having go through revision or above-knee amputation. OPERATIVE SUMMARY IN DETAIL: After obtaining the appropriate preoperative orthopedic surgery consents as well as anesthetic consultation, evaluation and clearance, the patient was brought to the operating room and placed on the operating table in supine position. After general laryngeal mask was administered, tourniquet was placed about the proximal aspect of the right upper extremity. Right lower extremity was prepped and draped in routine sterile fashion. The leg was elevated and exsanguinated, tourniquet inflated to 250 mmHg. Excisional debridement was carried out about the synovial cutaneous fistula down to the level of the knee prosthesis itself. Wound was copiously irrigated. Curvilinear incision was then made down and lateral for the rotational flap. The skin was gently mobilized at the fascia muscle level and then it was rotated into the residual wound of the proximal aspect, which was tied with a combination of simple and mattress 2-0 Prolenes. The residual curvilinear portion was closed with jenny. Having completed this, sterile dressings were applied. Pressure dressing was applied. Knee immobilizer was applied. The patient was awakened, taken to recovery room in stable condition. All final needle and sponge counts were correct. TRANSINT:[id number] Voice Confirmation ID: [id number] DOCUMENT ID: [id number] ANNABELLA KELLOGG, CANDIDO JUDGE at 1447 CC: [id number] DICTATION DATE: 01/15/17 1121 ELIGIBILITY COUNSELOR: 01/15/17 1237 [facility] [address] [place] [address]
--- NOTE | 2017-01-15 16:59 | NUR ---
EFRA SUAREZ. ARMINDA PO. CALL LIGHT IN REACH.
--- NOTE | 2017-01-15 18:59 | NUR ---
NO CHANGES IN INITIAL ASSESSMENT. CALL LIGHT IN REACH. WILL CONTINUE WITH PLAN OF CARE.
[2017-01-15 20:00] VITALS: BP 112/41
[2017-01-15 20:30] VITALS: Ht 154.9 cm; Wt 107.3 kg
--- NOTE | 2017-01-15 22:19 | NUR ---
REC'D SITTING UP IN BED. ALERT AND ORIENTED X4. REPORTED PAIN 2/10. IS WANTING A VALIUM BEFORE BED. INFORMED HER THAT THE VALIUM WAS ONLY SCHEDULED BEFORE SURGERY. VERBALIZED UNDERSTANDING. DAUGHTER IS AT BEDSIDE. NO DISTRESS NOTED. INSTRUCTED TO CALL IF NEEDED ANYTHING. VERBALIZED UNDERSTANDING. BED LOW, LOCKED, CALL LIGHT IN REACH. WILL CONT TO MONITOR.
--- NOTE | 2017-01-16 03:43 | NUR ---
PATIENT RESTING WITH EYES CLOSED AND NO VISIBLE SIGNS OF DISTRESS. BED IN LOWEST POSITION AND CALL LIGHT WITHIN REACH.
[2017-01-16 04:00] VITALS: BP 95/40
[2017-01-16 07:09] LABS: HEMOGLOBIN 9.6 g/dL (12-16)
--- NOTE | 2017-01-16 07:15 | NUR ---
REPORT RECIEVED FROM BARREL ASSEMBLER NURSE. CALL LIGHT IN REACH.
--- NOTE | 2017-01-16 08:30 | NUR ---
BERNADETTECO PO PER C/O PAIN. CALL LIGHT IN REACH.
[2017-01-16 08:50] VITALS: BP 129/52
--- NOTE | 2017-01-16 09:30 | NUR ---
ASSESSMENT COMPLETED. SCDs TO BLE. CALL LIGHT IN REACH. WILL CONTINUE WITH PLAN OF CARE.
--- NOTE | 2017-01-16 10:35 | NUR ---
AM MEDS ADMINISTERED WITH PERCOCET AND VALIUM. CALL LIGHT IN REACH.
[2017-01-16 12:03] VITALS: BP 124/51
--- NOTE | 2017-01-16 12:50 | NUR ---
REQUESTING PAIN MEDS. WILL BRING
--- NOTE | 2017-01-16 12:59 | NUR ---
REQUESTING MORE PAIN MEDS. NORCO PO. CALL LIGHT IN REACH.
--- NOTE | 2017-01-16 14:46 | NUR ---
UP TO BSC WITH ONE PERSON ASSIST. VOIDED CLEAR YELLOW URINE WITHOUT DIFFICULTY. SKIN CARE PER SELF. IMMOBILYZER IN PLACE TO RIGHT LEG. REPORTS PAIN WELL MANAGED. DENIES NEEDS.
[2017-01-16 16:21] VITALS: BP 124/48
[2017-01-16 20:00] VITALS: BP 115/66
--- NOTE | 2017-01-16 21:00 | NUR ---
REC'D.IN BED AAOX3. FAMILY AT BEDSIDE.ACEWRAP VISIBLE WITH KNEE IMMOBILIZER IN PLACE. FOOT PINK AND WARM DENIES ANY DECREASE IN SENSATION/ WIGGLES TOES AND DORSIFLEXES.GOOD PEDAL PULSE.HEELS BRIDGED. NORCO 10 ONE GIVEN REQUESTED.FOR RT. KNEE PAIN. WILL CONTINUE TO MONITOR FOR ANY CHGES. IN NEURO VASCULAR STATUS AND FOLLOW CURRENT PLAN OF CARE
[2017-01-17] VITALS: BP 120/64
[2017-01-17 04:00] VITALS: BP 122/66
--- NOTE | 2017-01-17 04:55 | NUR ---
PATIENT RESTING WITH EYES CLOSED AND NO VISIBLE SIGNS OF DISTRESS. BED IN LOWEST POSITION AND CALL LIGHT WITHIN REACH.
[2017-01-17 05:35] LABS: HEMOGLOBIN 10.2 g/dL (12-16)
--- NOTE | 2017-01-17 07:25 | NUR ---
REPORT RECEIVED FROM LOG SKIDDER NURSE. CALL LIGHT IN REACH.
[2017-01-17] MEDS ORDERED: DOXYCYCLINE HY100 M2 PO (07:48)
[2017-01-17] MEDS ORDERED: HYDROCODONE-APA1 TAB PO (07:48)
[2017-01-17 08:19] VITALS: BP 125/54
--- NOTE | 2017-01-17 09:34 | NUR ---
ASSESSMENT COMPLETED. BERNADETTECO PO WITH AM MEDS. SCD TO LLE. CALL LIGHT IN REACH. AT BEDSIDE.
--- NOTE | 2017-01-17 11:26 | NUR ---
DC INSRUCTIONS EXPLAINED TO PATIENT AND . VERBALIZED UNDERSTANDING. IV DC'D WITH TIP INTACT. RXs FOR HYDROCODONE AND DOXYXYCLINE HANDED TO PATIENT. WAITING ON DAUGHTER TO PICK HER UP.
--- NOTE | 2017-01-17 11:41 | NUR ---
PATIENT SITTING UP IN CHAIR AT BEDSIDE. NO SIGNS OF DISTRESS NOTED. FAMILY PRESENT. CALL LIGHT IN REACH.
--- NOTE | 2017-01-17 11:56 | NUR ---
PATIENT IS DISCHARGING HOME TODAY RESUMPTION OF CARE ([facility]), FAMILY DRIVING HER.
--- NOTE | 2017-01-17 13:36 | NUR ---
DC'D TO VEHICLE VIA WC WITH FAMILY.
== END 2017-01-17 13:36 | disposition home or self-care (01) ==
LOC: D.OPS 06:59 → D.MS 11:55 → D.PAN 12:50 → D.OPS 14:45 → D.PAN 14:45 → D.OPS 01-17 13:36
PROVIDERS: Anesthesiology; Orthopaedic Surgery
DX: T81.31XA Disruption of external operation (surgical) wound, not elsewhere classified, initial encounter (principal); M25.561 Pain in right knee; Z96.659 Presence of unspecified artificial knee joint; I25.10 Atherosclerotic heart disease of native coronary artery without angina pectoris; I10 Essential (primary) hypertension; E11.9 Type 2 diabetes mellitus without complications; G47.30 Sleep apnea, unspecified; K21.9 Gastro-esophageal reflux disease without esophagitis; E66.9 Obesity, unspecified; Z68.41 Body mass index [BMI] 40.0-44.9, adult; Z01.812 Encounter for preprocedural laboratory examination

== ENCOUNTER → 2017-04-18 18:32 | Outpatient (CLI) | payer MEDICARE ==
[2017-01-15 20:30] VITALS: BMI 44.7
[~2017-04-18 18:32] MED LIST changes: +DOXYCYCLINE HY100 M2 PO
[2017-04-27 17:10] LABS: AEROBE ID Final report (())
== END | disposition home or self-care (01) ==
LOC: D.LABREF 18:32
PROVIDERS: Orthopaedic Surgery
DX: S81.001A Unspecified open wound, right knee, initial encounter (principal); X58.XXXA Exposure to other specified factors, initial encounter; Y93.89 Activity, other specified; Y92.89 Other specified places as the place of occurrence of the external cause

== ENCOUNTER → 2017-09-03 13:32 | Outpatient (CLI) | payer MEDICARE ==
[2017-01-15 20:30] VITALS: BMI 44.7
[2017-09-03 14:06] LABS: BASOPHILS 0.9 % (0-2); EOSINOPHILS 5.8 % (0-7); HEMATOCRIT 31.5 % (36.0-48.0); HEMOGLOBIN 9.8 g/dL (12-16); IMMATURE GRANULOCYTES 0.2 % (0-5); LYMPHOCYTES 30.3 % (15-50); MCH 25.4 pg (26.0-34.0); MCHC 31.1 g/dL (31.0-37.0); MCV 81.6 fL (80.0-100.0); MEAN PLATELET VOLUME 11.3 fL (7.4-10.4); MONOCYTES 6.7 % (2-11); NEUTROPHILS 56.1 % (40-80); RBC 3.86 10x6/uL (4.00-5.40); RDW 19.3 % (11.5-14.5); WBC 6.6 10x3/uL (4.8-10.8)
[2017-09-03 14:07] LABS: PLATELET COUNT 263 10x3/uL (130-400)
[2017-09-03 14:21] LABS: ALBUMIN 2.3 g/dL (3.4-5.0); BILIRUBIN - DIRECT 0.08 mg/dL (0.00-0.30); BILIRUBIN - INDIRECT 0.22 mg/dL (0.00-1.00); BILIRUBIN - TOTAL 0.3 mg/dL (0.2-1.3); PROTEIN - SERUM 6.5 g/dL (6.4-8.2)
== END | disposition home or self-care (01) ==
LOC: D.LABREF 13:32
PROVIDERS: Orthopaedic Surgery
DX: T81.31XA Disruption of external operation (surgical) wound, not elsewhere classified, initial encounter (principal); T81.83XA Persistent postprocedural fistula, initial encounter; M25.161 Fistula, right knee; I25.10 Atherosclerotic heart disease of native coronary artery without angina pectoris

== ENCOUNTER → 2017-09-10 21:57 | Outpatient (CLI) | payer MEDICARE ==
[2017-01-15 20:30] VITALS: BMI 44.7
[2017-09-10 22:45] LABS: BASOPHILS 1.2 % (0-2); EOSINOPHILS 5.8 % (0-7); HEMATOCRIT 31.4 % (36.0-48.0); HEMOGLOBIN 9.6 g/dL (12-16); IMMATURE GRANULOCYTES 0.1 % (0-5); LYMPHOCYTES 33.1 % (15-50); MCH 25.4 pg (26.0-34.0); MCHC 30.6 g/dL (31.0-37.0); MCV 83.1 fL (80.0-100.0); MEAN PLATELET VOLUME 11.1 fL (7.4-10.4); MONOCYTES 11.3 % (2-11); NEUTROPHILS 48.5 % (40-80); PLATELET COUNT 258 10x3/uL (130-400); RBC 3.78 10x6/uL (4.00-5.40); WBC 7.4 10x3/uL (4.8-10.8)
[2017-09-10 23:10] LABS: ALBUMIN 2.4 g/dL (3.4-5.0); BILIRUBIN - DIRECT 0.12 mg/dL (0.00-0.30); BILIRUBIN - INDIRECT 0.12 mg/dL (0.00-1.00); BILIRUBIN - TOTAL 0.24 mg/dL (0.2-1.3); CREATININE - SERUM 0.9 mg/dL (0.6-1.3); PROTEIN - SERUM 6.9 g/dL (6.4-8.2)
== END | disposition home or self-care (01) ==
LOC: D.LABREF 21:57
PROVIDERS: Orthopaedic Surgery
DX: S00-T88 Injury, poisoning and certain other consequences of external causes (principal); Z51.81 Encounter for therapeutic drug level monitoring; Z79.2 Long term (current) use of antibiotics; E11.9 Type 2 diabetes mellitus without complications

== ENCOUNTER → 2017-09-17 14:16 | Outpatient (CLI) | payer MEDICARE ==
[2017-01-15 20:30] VITALS: BMI 44.7
[2017-09-17 16:10] LABS: BASOPHILS 0.7 % (0-2); EOSINOPHILS 4.9 % (0-7); HEMATOCRIT 30.1 % (36.0-48.0); HEMOGLOBIN 9.2 g/dL (12-16); IMMATURE GRANULOCYTES 0.1 % (0-5); LYMPHOCYTES 34.2 % (15-50); MCH 24.7 pg (26.0-34.0); MCHC 30.6 g/dL (31.0-37.0); MCV 80.7 fL (80.0-100.0); MEAN PLATELET VOLUME 11.5 fL (7.4-10.4); MONOCYTES 9.6 % (2-11); NEUTROPHILS 50.5 % (40-80); PLATELET COUNT 280 10x3/uL (130-400); RBC 3.73 10x6/uL (4.00-5.40); RDW 18.2 % (11.5-14.5)
[2017-09-17 16:38] LABS: ALBUMIN 2.3 g/dL (3.4-5.0); BILIRUBIN - DIRECT 0.08 mg/dL (0.00-0.30); BILIRUBIN - INDIRECT 0.22 mg/dL (0.00-1.00); BILIRUBIN - TOTAL 0.3 mg/dL (0.2-1.3); CREATININE - SERUM 1.3 mg/dL (0.6-1.3); PROTEIN - SERUM 6.6 g/dL (6.4-8.2)
== END | disposition home or self-care (01) ==
LOC: D.LABREF 14:16
PROVIDERS: Orthopaedic Surgery
DX: T81.31XD Disruption of external operation (surgical) wound, not elsewhere classified, subsequent encounter (principal); T81.83XA Persistent postprocedural fistula, initial encounter; Z51.81 Encounter for therapeutic drug level monitoring; Z79.2 Long term (current) use of antibiotics; E11.9 Type 2 diabetes mellitus without complications

== ENCOUNTER 2018-12-30 11:19 | Observation (INO) | payer MEDICARE ==
[~2018-12-30] VITALS: Ht 154.9 cm; Wt 118.4 kg
--- NOTE | ~2018-12-30 | HEMODYNAMI ---
PATIENT:MONSE JAVIER MEDICAL RECORD: [id number] : 42 [id number] ADMISSION DATE: 12/30/18 Generatedon:12/31/201810:37 Patient name: MONSE JAVIER Patient #: [id number] SSN: [id number] : 1940 Date of study: 12/31/2018 Page: Of Hemodynamic Procedure Report Patient Data Patient Demographics Procedure consent was obtained First Name: MONSE Gender: Female Last Name: YAYA : 1940 [facility] Initial: B Age: 78 year(s) Patient #: [id number] Race: SSN: [id number] Additional ID: [id number] Contact details Address: [address] [place] [address] State: [place] City: [place] Zip code: [address] Admission Admission Data Admission Date: 12/30/2018 Admission Time: 14:48 Arrival Date: 12/30/2018 Arrival Time: 14:48 Admit Source: Other Insurance Payor: Private Room #: D.[id number] health insurance Height (in.): 61 BSA: 2.12 (m2) Height (cm.): 154.94 BMI: 49.32 (kg/m2) Weight (lbs.): 261 Weight (kg.): 118.39 Lab Results Lab Result Date: 12/31/2018 Lab Result Time: 0:00 Biochemistry Name Units Result Min Max BUN mg/dl 18 --(---*)-- 7 18 Creatinine mg/dl 0.9 --(-*--)-- 0.6 1.3 CBC Name Units Result Min Max Hemoglobin g/dl 9 *-(----)-- 13.5 17.5 Procedure Procedure Types Cath Procedure Diagnostic Procedure LHC LHC w/Coronaries Sedation Charges Moderate Sedation up to 15 minutes Procedure Description Procedure Date Procedure Date: 12/31/2018 Procedure Start Time: 10:22 Procedure End Time: 10:35 Procedure Staff Name Function Kenneth Doyle MD Performing Physician Mara Holley RT Monitor Jacklyn Lacey RT Scrub Makayla Coleman RN Nurse Markie Garland RT Milieu Coordinator Procedure Data Cath Procedure Fluoroscopy Diagnostic fluoroscopy Total fluoroscopy Time: 1.6 time: 1.6 min min Diagnostic fluoroscopy Total fluoroscopy dose: 704 dose: 704 mGy mGy Contrast Material Contrast Material Type Amount (ml) Isovue 300 51 Entry Location Entry Primary Successful Side Size Upsize Upsize Entry Closure Succes sful Closure Location (Fr) 1 (Fr) 2 (Fr) Remarks Device Remarks Femoral Right 5 Fr Exoseal artery Estimated blood loss: 5 ml Diagnostic catheters Device Type Used For End Catheter Placement MULTIPACK JL 4.0 5Fr Left Coronary catheter Angiography MULTIPACK 3DRC 5Fr Right Coronary catheter Angiography MULTIPACK Pigtail 5 Fr LV Angiography catheter Procedure Complications No complications Procedure Medications Medication Administration Route Dosage 0.9% NaCl I.V. 100 ml/hr Oxygen etCO2 Nasal cannula 2 l/min Lidocaine 2% added to field 20 Heparin Flush Bag added to field 2 bags (1000units/500ml NS) Versed I.V. 2 mg Fentanyl I.V. 100 mcg Hemodynamics Rest BSA: 2.12 (m2) HGB: 9 (g/dl) O2 Consumption: Estimated: 192.5 (ml/min) O2 Consum ption indexed: Estimated:90.8 (ml/min/m) Heart Rate: 71 (bpm) Pressure Samples Time Site Value (mmHg) Purpose Heart Use Rate(bpm) 10:32 LV 166/24,29 Snapshot 76 Gradients Valve Time Site Site Mean SEP/DFP Peak To Heart Use 1 2 (mmHg) (sec/min) Peak Rate (mmHg) (bpm) Aortic 10:33 LV AO 84 Snapshots Pre Cath Intra NCS Post Cath Vital Signs Time Heart Resp SPO2 etCO2 NIBP (mmHg) Rhythm Pain Sedation Rate (ipm) (%) (mmHg) Status Level (bpm) 10:09:25 88 24 97 25 175/79(133) NSR 0 (11) 10(A) , No pain 10:14:08 70 19 97 29 187/86(124) NSR 0 (11) 10(A) , No pain 10:18:49 68 16 98 30.8 167/84(131) NSR 0 (11) 10(A) , No pain 10:23:27 67 16 99 30 155/82(108) NSR 0 (11) 9(A) , No pain 10:27:52 69 12 97 31.5 149/84(120) NSR 0 (11) 10(A) , No pain 10:32:20 74 12 98 33 156/81(127) NSR 0 (11) 10(A) , No pain Medications Time Medication Route Dose Verified Delivered Reason Notes Eff ectiveness by by 10:17:52 0.9% NaCl I.V. 100 Kenneth Makayla used for ml/hr Vivek Coleman bottle assembler 10:18:02 Oxygen etCO2 2 Kenneth Makayla used for Nasal l/min Vivek Coleman procedure cannula RN 10:18:06 Lidocaine 2% added 20ml Kenneth Kenneth for local to vial Vivek Doyle MD anesthetic field 10:18:11 Heparin Flush added 2 Kenneth Kenneth used for Bag to bags Vivek Doyle MD procedure (1000units/500ml field NS) 10:21:45 Versed I.V. 2 mg Kenneth Makayla for Vivek Coleman sedation RN 10:21:50 Fentanyl I.V. 100 Kenneth Makayla for mcg Vivek Coleman sedation alternative energy engineer Log Time Note 9:47:18 Procedure Status Urgent Heart Cath (IP). 9:48:18 Makayla Coleman RN sent for patient. Start room use. 9:48:19 Time tracking: Regular hours (M-F 7:00 - 5:00) 9:48:24 Plan of Care:Hemodynamics will remain stable., Cardiac rhythm will remain stable., Comfort level will be maintained., Respiratory function will remain adequate., Patient/ family verbilizes understanding of procedure., Procedure tolerated without complication., Recovers from procedure without complications.. 9:51:11 Admit Source: Other 9:51:19 Patient Height : 61 inches 9:51:33 Patient Weight : 261 lbs 9:51:33 Insurance Payor : Private health insurance 9:51:40 Arrival Date: 12/30/2018 2:48:00 PM 9:52:36 Lab Result : BUN 18 mg/dl 9:52:36 Lab Result : Hemoglobin 9 g/dl 9:52:36 Lab Result : Creatinine 0.9 mg/dl 9:52:50 2) 60-89 Mildly reduced kidney function, and other findings (as for stage 1) point to kidney disease. 9:53:12 Maximum allowable contrast dose (3.7 X eGFR X 0.75)177 ml. 10:00:00 Patient received from Med II to CCL 2 Alert and oriented. Tansferred to table in Supine position. 10:00:03 Signed procedure consent form obtained from patient. 10:00:05 Warm blankets applied, and june hugger turned on for patient comfort. 10:00:05 Correct patient and procedure confirmed by team. 10:00:06 ECG and BP/O2 sat monitors applied to patient. 10:07:49 Vital chart was started 10:14:14 Baseline sample Acquired. 10:14:21 Rhythm: sinus rhythm 10:14:23 Full Disclosure recording started 10:14:29 H&P Date Dictated: 12/31/2018 New H&P dictated by physician.. 10:14:30 Pre-procedure instructions explained to patient. 10:14:30 Pre-op teaching completed and patient verbalized understanding. 10:14:59 Family in patients room. 10:15:00 Patient NPO since Midnight. 10:15:03 Is the patient allergic to Iodine/contrast media? No. 10:15:05 Was the patient premedicated? No 10:17:33 Patient diabetic? No. 10:17:36 Previous problem with sedation/anesthesia? No ? 10:17:37 Snore? Yes 10:17:38 Sleep apnea? Yes 10:17:40 Deviated septum? No 10:17:40 Opens mouth fully? Yes 10:17:41 Sticks out tongue? Yes 10:17:43 Airway obstruction? No ? 10:17:49 Dentures? Yes out 10:17:52 0.9% NaCl 100 ml/hr I.V. was administered by Makayla Coleman RN; used for procedure; 10:17:52 Pre procedure: right dorsailis pedis pulse 2+ Normal; easily identifiable; not easily obliterated 10:17:54 Pre procedure: left dorsailis pedis pulse 2+ Normal; easily identifiable; not easily obliterated 10:17:57 Patient pain scale 0/10 ?. 10:18:02 Oxygen 2 l/min etCO2 Nasal cannula was administered by Makayla Coleman RN; used for procedure; 10:18:06 Lidocaine 2% 20ml vial added to field was administered by Kenneth Doyle MD; for local anesthetic; 10:18:11 Heparin Flush Bag (1000units/500ml NS) 2 bags added to field was administered by Kenneth Doyle MD; used for procedure; 10:18:15 IV patent on arrival in right hand with 0.9% NaCl at [facility]. 10:18:18 Lab results completed and on chart. 10:18:24 Right groin area was prepped with chlora-prep and draped in sterile fashion 10:18:25 Alarms reviewed by R. N. 10:18:25 Sharps counted by scrub and verified by R.N. 10:18:27 Physician arrived 10:18:27 --------ALL STOP TIME OUT------ 10:18:28 Final Timeout: patient, procedure, and site verified with staff and physician. All members of the team are in agreement. 10:18:31 Right groin site verified by team. 10:18:34 Fire Safety Assessment: A--An alcohol-based skin anteseptic being used preoperatively., C--Open oxygen or nitrous oxide is being used., D--An ESU, laser, or fiber-optic light is being used. 10:19:12 Physical assessment completed. ASA score P 2 - A patient with mild systemic disease as per Kenneth Doyle MD. 10:19:16 Sedation plan: IV Moderate Sedation Medication:Versed, Fentanyl 10:21:43 Use device set Femoral Dx 10:21:45 Versed 2 mg I.V. was administered by Makayla Coleman RN; for sedation; 10:21:45 ACIST Syringe (64996) opened to sterile field. 10:21:45 Bag Decanter () opened to sterile field. 10:21:45 Medline Cath Pack ([id number]) opened to sterile field. 10:21:46 ACIST Hand Control (46192) opened to sterile field. 10:21:47 ACIST Manifold (00128) opened to sterile field. 10:21:47 DIAGNOSTIC Multipack 5Fr catheter set (KG7700) opened to sterile field. 10:21:48 Tegaderm 4 x 4 (1626W) opened to sterile field. 10:21:49 EMERALD Guide Wire (705-396) opened to sterile field. 10:21:50 Fentanyl 100 mcg I.V. was administered by Makayla Coleman RN; for sedation; 10:21:50 SHEATH 5FR [place] (NEU444) opened to sterile field. 10:21:55 Procedure started. 10:22:09 Local anesthetic to right femoral artery with Lidocaine 2% by Kenneth Doyle MD.INITIAL ACCESS ONLY 10:26:47 A 5 Fr sheath was inserted into the Right Femoral artery 10::55 A MULTIPACK JL 4.0 5Fr catheter was advanced over the wire and used for Left Coronary Angiography. 10:27:00 Zero performed for pressure channel P1 10:27:57 LCA angiography performed. 10:28:16 Injector settings: Ml/sec: 3, Volume: 6, 10:29:22 Catheter removed. 10:29:30 A MULTIPACK 3DRC 5Fr catheter was advanced over the wire and used for Right Coronary Angiography. 10:30:44 RCA angiography performed. 10:30:47 Injector settings: Ml/sec: 3, Volume: 6, 10:30:56 Catheter removed. 10:31:05 A MULTIPACK Pigtail 5 Fr catheter was advanced over the wire and used for LV Angiography. 10:31:18 ACCDominant side:Co-Dominant 10:32:41 LV hemodynamics recorded. 10:32:42 LV gram done using GRACIA 10:32:44 Injector settings: Ml/sec: 5, Volume: 15, 10:33:00 EF : 45 % 10:33:11 Catheter removed. 10:33:15 EXOSEAL 5Fr (EX500) opened to sterile field. 10:33:34 Sheath removed intact; hemostasis achieved with Exoseal to the Right Femoral artery. 10:33:36 Procedure ended.(Physican Out) 10:33:45 Fluoroscopy time 01.60 minutes. 10:33:49 Fluoroscopy dose: 704 mGy 10:33:49 Flurop Dose total: 704 10:33:55 Dose Area Product 42317 mGy/cm. 10:33:59 Contrast amount:Isovue 300 51ml. 10:34:01 Sharps counted by scrub and verified by R.N. 10:34:02 Insertion/operative site no bleeding no hematoma. 10:34:05 Post-op/insertion site Right Femoral artery dressed using a 4 x 4 and Tegaderm. 10:34:08 Post right femoral artery:stable 10:34:10 Post Procedure Pulses reassessed and unchanged 10:34:12 Post procedure rhythm: unchanged. 10:34:15 Estimated blood loss: 5 ml 10:34:17 Post procedure instruction explained to patient.Patient verbalizes understanding. 10:34:17 Patient needs reinforcement of post procedure teaching. 10:34:25 Procedure type changed to Cath procedure, Diagnostic procedure, LHC, LHC w/Coronaries, Sedation Charges, Moderate Sedation up to 15 minutes 10:34:26 Procedure and supply charges have been captured, reviewed, submitted and are correct. 10:34:31 Procedure Complication : No complications 10:34:33 Vital chart was stopped 10:34:34 See physician's report for complete and final results. 10:34:51 Report given to Med II. 10:35:04 Patient transfered to Pre/Post Procedure Room with Stretcher. 10:35:06 Procedure ended. 10:35:06 Full Disclosure recording stopped 10:35:10 End room use (Document Last) Device Usage Item Name Manufacture Quantity Catalog Hospital Part Current Minimal L ot# / Number Charge Number Stock Stock Serial# Code ACIST Acist 1 05744 741035 914826 604046 20 Syringe Medical (79529) Systems Inc Bag Microtek 1 2001S 181224 24884 867142 5 Decanter Medical Inc. () Medline Medline 1 [id number] 014824 24137 238224 5 Cath Pack ([id number]) ACIST Hand Acist 1 72055 078831 172202 702893 5 Control Medical (68248) Systems Inc ACIST Acist 1 90763 412681 568853 270848 5 Manifold Medical (96007) Systems Inc DIAGNOSTIC Cardinal 1 NF8046 978393 87320 132496 30 Multipack Health 5Fr catheter set (YW6500) Tegaderm 4 3M 1 1626W 628037 282345 079969 5 x 4 (1626W) EMERALD Cardinal 1 502-455 513464 321581 073174 5 Guide Wire Health (502-455) SHEATH 5FR Terumo 1 ULF395 679274 680667 328054 5 [place] (SVR875) MULTIPACK Cardinal 1 101107 5 JL 4.0 5Fr Health catheter MULTIPACK Cardinal 1 726156 5 3DRC 5Fr Health catheter MULTIPACK Cardinal 1 484480 5 Pigtail 5 Health Fr catheter EXOSEAL 5Fr Cardinal 1 EX500 536631 979634 955080 10 (EX500) Health Signature Audit Barre Stage Time Signature Unsigned Intra-Procedure 12/31/2018 Mara Holley 10:37:18 AM RT(R) Signatures Performing Physician : Signature : Kenneth Doyle MD Date : Time : Monitor : Mara Holley RT Signature : Date : Time : Nurse : Makayla Coleman RN Signature : Date : Time : [place] [address] [place] [address]
[~2018-12-30 11:19] MED LIST changes: -DITROPAN X10 MG/BOTT PO; +OXYBUTYNIN CHLOR5 M1 PO
[2018-12-30] MEDS ORDERED: ATIVAN1 MG PO (11:33)
[2018-12-30] MEDS ORDERED: PACERONE200 MG PO (11:33)
--- NOTE | 2018-12-30 12:23 | NUR ---
PT DENIES ANY CP AT THIS TIME, STATES DISCOMFORT IS 0/10. NO PRN SL NITRO GIVEN AT THIS TIME, PT INSTRUCTED TO NOTIFY STAFF IF CP RETURNS.
[2018-12-30 12:26] LABS: APTT 29.8 SECONDS (22.8-39.4); INR 1.09 (0.85-1.17); PROTIME 13.6 SECONDS (11.6-15.0)
[2018-12-30 12:30] LABS: ALKALINE PHOSPHATASE 83 U/L (46-116); ALT (SGPT) 14 U/L (10-68); BILIRUBIN - TOTAL 0.46 mg/dL (0.2-1.3); CALC OSMOLALITY 279 mosm/kg (275-300); CALCIUM 8.2 mg/dL (8.5-10.1); CARBON DIOXIDE 25.8 mmol/L (21.0-32.0); CHLORIDE - SERUM 105 mmol/L (98-107); GLUCOSE 104 mg/dL (74-106); POTASSIUM - SERUM 4.3 mmol/L (3.5-5.1); PROTEIN - SERUM 6.9 g/dL (6.4-8.2); SODIUM 139 mmol/L (136-145); UREA NITROGEN 18 mg/dL (7-18); eGFR NON AFRICAN AMERICAN 57 mL/min (90-120)
[2018-12-30 12:38] LABS: LIPASE 88 U/L (73-393); PRO BNP 1299 pg/mL (0-450)
[2018-12-30 12:44] LABS: TROPONIN-I < 0.017 ng/mL (0.000-0.060)
[2018-12-30 12:57] VITALS: BP 140/60
[2018-12-30 13:15] LABS: BASOPHILS 0.8 % (0-2); EOSINOPHILS 3.2 % (0-7); HEMATOCRIT 32.5 % (36.0-48.0); HEMOGLOBIN 9.9 g/dL (12-16); IMMATURE GRANULOCYTES 0.3 % (0-5); LYMPHOCYTES 38.3 % (15-50); MCH 21.6 pg (26.0-34.0); MCHC 30.5 g/dL (31.0-37.0); MCV 70.8 fL (80.0-100.0); MEAN PLATELET VOLUME 10.7 fL (7.4-10.4); MONOCYTES 5.9 % (2-11); NEUTROPHILS 51.5 % (40-80); PLATELET COUNT 313 10x3/uL (130-400); RBC 4.59 10x6/uL (4.00-5.40); RDW 18.3 % (11.5-14.5); WBC 7.2 10x3/uL (4.8-10.8)
[2018-12-30 13:31] VITALS: BP 138/53
--- NOTE | 2018-12-30 14:00 | NUR ---
PT SITTING IN HIGH GOMES'S, RESPIRATIONS EVEN AND UNLABORED. PT CONTINUES TO DENY ANY CHEST DISCOMFORT. [facility] LUNCH TRAY ORDERED FOR PT REQUESTED. PT DENIES ANY NEEDS. PT IS AWARE SHE IS BEING ADMITTED, AWAITING BED ASSIGNMENT. CALL LIGHT IN REACH.
[2018-12-30] MEDS ORDERED: OXYBUTYNIN CHLOR5 MG PO (15:06)
[2018-12-30] MEDS ORDERED: COREG6.25 MG PO (15:17)
[2018-12-30 15:35] VITALS: BP 147/80; BMI 49.4
[2018-12-30 17:15] VITALS: BP 147/80
--- NOTE | 2018-12-30 17:15 | NUR ---
PT WANTING ATIVAN ORDERED FOR HER ANXIETY. PAGED JUAN GAMINO.
--- NOTE | 2018-12-30 18:21 | NUR ---
WAITING FOR CATALYST UNIT OPERATOR TO PULL ATIVAN OUT OF PYXIS. STATED THIS TO PT AND SHE VERBALIZED UNDERSTANDING.
[2018-12-30 19:16] LABS: CKMB 1.8 U/L (0.0-3.6); CREATINE KINASE 69 UL (21-215); TROPONIN-I < 0.017 ng/mL (0.000-0.060)
--- NOTE | 2018-12-30 19:19 | NUR ---
REPORT RECEIVED FROM DAY SHIFT, PT CARE ASSUMED. INTRODUCED SELF AND WROTE NAME ON BOARD, PT SITTING UP IN BED, AAOX4, AT BEDSIDE. DENIES PAIN OR ANY NEEDS AT THIS TIME. BED IN LOWEST POSITION, SR X2, CALL LIGHT WITHIN REACH. WILL CONTINUE TO MONITOR.
[2018-12-30 20:00] VITALS: BP 135/63
--- NOTE | 2018-12-30 20:43 | NUR ---
NIGHT TIME MEDS ADMINISTERED, PER ORDER. ASSISTED PT TO RESTROOM AND BACK TO BED. 400 ML CLEAR YELLOW URINE NOTED. DENIES PAIN OR ANY NEEDS AT THIS TIME. BED IN LOWEST POSITION, SR X2, CALL LIGHT AND CELL PHONE WITHIN REACH. WILL CONTINUE TO MONITOR.
[2018-12-31 00:01] VITALS: BP 114/56
[2018-12-31 00:59] LABS: CKMB 2.1 U/L (0.0-3.6); CREATINE KINASE 63 UL (21-215); TROPONIN-I 0.021 ng/mL (0.000-0.060)
[2018-12-31 02:50] LABS: BASOPHILS 0.8 % (0-2); EOSINOPHILS 2.9 % (0-7); HEMATOCRIT 28.8 % (36.0-48.0); IMMATURE GRANULOCYTES 0.2 % (0-5); LYMPHOCYTES 41.5 % (15-50); MCH 21.8 pg (26.0-34.0); MCHC 31.3 g/dL (31.0-37.0); MCV 69.9 fL (80.0-100.0); MEAN PLATELET VOLUME 10.4 fL (7.4-10.4); NEUTROPHILS 46.6 % (40-80); PLATELET COUNT 293 10x3/uL (130-400); RBC 4.12 10x6/uL (4.00-5.40); RDW 18.1 % (11.5-14.5)
[2018-12-31 02:51] LABS: WBC 9.4 10x3/uL (4.8-10.8)
[2018-12-31 03:06] LABS: ALBUMIN 2.7 g/dL (3.4-5.0); ALKALINE PHOSPHATASE 69 U/L (46-116); ALT (SGPT) 13 U/L (10-68); BILIRUBIN - TOTAL 0.41 mg/dL (0.2-1.3); CALC OSMOLALITY 282 mosm/kg (275-300); CARBON DIOXIDE 27.7 mmol/L (21.0-32.0); CHLORIDE - SERUM 106 mmol/L (98-107); CKMB 1.7 U/L (0.0-3.6); CREATINE KINASE 58 UL (21-215); CREATININE - SERUM 0.9 mg/dL (0.6-1.3); GLUCOSE 99 mg/dL (74-106); POTASSIUM - SERUM 4.2 mmol/L (3.5-5.1); SODIUM 141 mmol/L (136-145); UREA NITROGEN 18 mg/dL (7-18); eGFR NON AFRICAN AMERICAN 64 mL/min (90-120)
[2018-12-31 03:07] LABS: TROPONIN-I < 0.017 ng/mL (0.000-0.060)
[2018-12-31 04:00] VITALS: BP 123/67
--- NOTE | 2018-12-31 07:42 | NUR ---
REPORT RECIEVED. PT RESTING QUIETLY LYING PRONE. RISE AND FALL NOTICED. RR EVEN AND UNLABORED. PT HAS A R HAND PIV THAT IS SL. CURRENTLY NPO DUE TO POSSIBLE HEART CATH TODAY. BED LOCKED AND IN LOWEST POSTION. CALL LIGHT WITHIN REACH. WILL CTM
[2018-12-31 09:47] VITALS: BP 139/70
--- NOTE | 2018-12-31 10:55 | NUR ---
PT RETURNED FROM ENERGY OPERATIONS VICE PRESIDENT. CLEAN CATH. R JUDE DRESSING WNL NO SIGNS OF HEMATOMA. VS STABLE. PT LYING SUPINE AND WILL CONTINUE TO LIE SUPINE FOR 2HRS. PULSE CHECKS EQUAL BILAT. WILL CTM
[2018-12-31 12:43] VITALS: Ht 154.9 cm; Wt 118.4 kg
[2018-12-31] MEDS ORDERED: ASPIRIN325 MG PO (17:11)
--- NOTE | 2018-12-31 18:27 | NUR ---
DC PAPERWORK SIGNED AND GONE OVER WITH PT. ALL QUESTIONS ANSWERED. PIV REMOVED. CATH TIP INTACT. TELEMETRY REMOVED AND RETURNED TO [facility]. PT TAKEN DOWN STAIRS VIA WHEELCHAIR WITH . ALL VALUBALES REMOVED FROM ROOM.
--- NOTE | 2019-01-01 07:09 | MORECARE ---
CASE MANAGEMENT DISCHARGE SUMMARY PATIENT: MONSE JAVIER UNIT: [id number] ADM DATE: 12/30/18 AGE: 78 : [birth year] SEX: F ROOM/BED: D.2106 AUTHOR: ALYSSA HART PHYSICIAN: REFERRING PHYSICIAN: DAVIDA LEVINE MD DATE OF SERVICE: 01/01/19 Discharge Plan Patient Name: MONSE JAVIER [facility] 1940 Planned Disposition: Home Anticipated Discharge Date: 12/31/18 Discharge Date: 12/31/2018 Expected LOS: 1 Initial Reviewer: [email or web address] Initial Review Date: 01/01/2019 Generated: 01/01/19 8:09 am Patient Name: MONSE JAVIER Page [id number] at 0709 All edits/amendments must be made on the electronic document DICTATION DATE: 01/01/19708 BASKET OPERATOR: SHAHBAZ 01/01/19708 RPT#: [id number] DC DATE:12/31/18 STATUS: DIS IN [facility] [address] [place] [place] [address] END OF REPORT
--- NOTE | 2019-01-08 14:31 | EC ---
PATIENT:MONSE JAVIER DATE OF SERVICE: 12/30/18 SEX: F MEDICAL RECORD: [id number] DATE OF : 42 LOCATION:D.M2 D.210 AGE OF PATIENT: 78 ADMISSION DATE: 12/30/18 REFERRING PHYSICIAN: INTERPRETING PHYSICIAN: RAKESH FITZGERALD MD ECHOCARDIOGRAM REPORT ECHO CHARGES 4 ECHO COMPLETE Date: 12/31/18 CLINICAL DIAGNOSIS: CHF ECHOCARDIOGRAPHIC MEASUREMENTS (adult normal given) AC root (d.<3.7cm) 2.4 cm LV Septum d (<1.2 cm> 1.3 cm Valve Excursion 1.4 cm LV Septum (systole) 1.5 cm Left Atria (s.<4.0cm> 4.4 cm LVPW d(<1.2cm) 0.9 cm RV (d.<2.3cm) 2.5 cm LVPW (sytole) 1.2 cm LV diastole(<5.6CM) 5.7 cm MV E-F(>70mm/sec) cm LV systole 4.8 cm LVOT Diameter 1.4 cm MV exc.(>10mm) cm Est.ejection fraction (50-75%) % DOPPLER: LVIT cm/sec A 102 cm/sec E 107 cm/sec LA cm/sec RVSP 29.0 mmHg LVOT 97 cm/sec AOP1/2T m/s Asc. Ao 176 cm/sec RVOT 86 cm/sec RA cm/sec PA 101 cm/sec AV Gradient Peak 12.4 mmHg AV Mean 7.0 mmHg AV Area cm MV Gradient Peak 5.3 mmHg MV Mean 3.4 mmHg MV Area cm COMMENTS: Winder Operator: Karine BRONSON Dining Room Manager: Shannon Doyle TAPE# PACS Pericardial Effusion N DATE OF SERVICE: Echocardiogram FINDINGS: 1. Left ventricular chamber size is dilated. Left ventricular systolic function is markedly reduced in the 15% to 20% range. 2. Left atrium is dilated at 4.4 cm. Right atrium and right ventricular chamber sizes are as well mildly dilated. 3. Valvular structures have normal structure and motion. ECHOCARDIOGRAM REPORT [id number] MONSE JAVIER 4. Doppler interrogation reveals mild mitral regurgitation, mild tricuspid regurgitation. No other valvular insufficiency or stenosis and pulmonary systolic pressure is normal estimated at 29 mmHg. 5. No evidence of pericardial effusion or left ventricular thrombus. TRANSINT:[id number] Voice Confirmation ID: [id number] DOCUMENT ID: [id number] RAKESH FITZGERALD MD at 1431 CC: [id number] DICTATION DATE: 01/01/19300 PIERCE AND SHAVE PRESS OPERATOR: 01/01/19308 DIS IN 12/31/18 [place] [id number] [place] [id number]
== END 2018-12-31 18:29 | disposition home or self-care (01) ==
LOC: D.ER 11:19 → D.M2 14:48 → OBSVTIME 14:48 → D.M2 12-31 18:29
PROVIDERS: Family Medicine; ADMIT Family Medicine; ATTEND Family Medicine
DX: I25.110 Atherosclerotic heart disease of native coronary artery with unstable angina pectoris (principal); R06.00 Dyspnea, unspecified; I10 Essential (primary) hypertension; E66.9 Obesity, unspecified; G47.33 Obstructive sleep apnea (adult) (pediatric); E11.9 Type 2 diabetes mellitus without complications; M19.90 Unspecified osteoarthritis, unspecified site; F41.8 Other specified anxiety disorders; D50.9 Iron deficiency anemia, unspecified